=== PATIENT | male | born 1955 | race Caucasian/White ===

== ENCOUNTER 2019-07-27 11:47 | Inpatient (IN) ==
--- NOTE | 2019-07-27 13:28 | PROVIDER DOCUMENTATION ---
HPI-General Adult - General Chief Complaint: Abscess Stated Complaint: CYST Time Seen by Provider: 07/27/19 12:31 Source: patient, family Allergies/Adverse Reactions: Patient Allergies Allergy/AdvReac Type Severity Reaction Status Date / Time No Known Allergies Allergy Verified 09/11/16 06:16 Home Medications: Home Medication List Medication Instructions Recorded Confirmed Last Taken Type Cyclobenzaprine [Flexeril] 10 mg PO HS #15 tablet 09/11/16 Unknown Rx Hum Insulin NPH/Reg Insulin Hm 20 unit SQ PRN PRN 09/11/16 09/11/16 06/19/16 History [Novolin 70-30 100 Unit/ml Vial] Naproxen [Naprosyn] 500 mg PO BID #20 tablet 09/11/16 Unknown Rx - History of Present Illness -Gen Adult Nature of Presenting Problems: 64yo male presents with CC of buttock and hip pain. The patient reports that last week he had an abscess drained at urgent care, and he has not improved since. The patient has been taking abx, and has not noted drainage from the wound. The patient is a diabetic but reports that he is not compliant with his insulin. The patient denies fevers. He does report some nausea, and family memb er reports increased lethargy. Location of Pain/Injury: reports: other (buttock) Pain Radiation: reports: buttocks, flank (L), legs (lower) Severity: reports: moderate Onset/Duration: reports: 1 week ago Timing: reports: still present Modifying Factors: improves with: movement (worsens) Associated Symptoms: reports: nausea, other (hip pain). denies: fever/chills Recently seen or treated by another doctor?: Yes (Drainage at Urgent Care last week) Review of Systems - Adult - REVIEW OF SYSTEMS - ADULT Constitutional: reports: no symptoms reported. denies: fever Eyes: reports: no symptoms reported Ears, Nose, Mouth & Throat: reports: no symptoms reported. denies: throat pain Cardiovascular: reports: no symptoms reported. denies: chest pain Respiratory: reports: no symptoms reported Gastrointestinal: reports: no symptoms reported. denies: abdominal pain Genitourinary: reports: flank pain Musculoskeletal: reports: other (hip pain and buttock pain) Integumentary: reports: skin sores/ulcer, other (recent abscess) Neurological: reports: other (weakness and lethargy) Psychiatric: reports: no symptoms reported Endocrine: reports: no symptoms reported Hematologic/Lymphatic: reports: no symptoms reported Allergic/Immunologic: reports: other (recent skin infection) Past History - Adult - PAST MEDICAL HISTORY-ADULT Review of Records: reports: Old Records Reviewed Endocrine/Immune: reports: Diabetes - FAMILY HISTORY Family History: reviewed, not pertinent - SOCIAL HISTORY Smoking: greater than 1 pack/day (1ppd) Substance Use: none/never Alcohol Use Frequency: every day Physical Exam-General - PHYSICAL EXAM-ADULT Initial Vital Signs Reviewed: Yes - CONSTITUTIONAL General Appearance: no apparent distress, lethargic - EYES Eyes: negative: conjuctival exudate - HEAD, EARS, NOSE, MOUTH & THROAT HENMT: normocephalic/atraumatic - RESPIRATORY Respiratory: lungs clear, no respiratory distress, decreased breath sounds (LLL) - CARDIOVASCULAR Cardiovascular: regular rate, rhythm, no edema - GASTROINTESTINAL (ABDOMEN) Abdominal Exam: non tender, soft - MUSCULOSKELETAL Back Exam: normal inspection Extremity: non-tender (LE). negative: swelling - SKIN Integumentary: erythema, other (incision of the inner left buttocks with surrounding necrosis which tracks down buttock about 8-10cm. There is no active drainage noted.) - PSYCHIATRIC Psych/Mental Status: disheveled, other (lethargic) Progress - PLAN OF CARE/RESULTS Progress/Plan/Lab Results: Vital Signs - 8 hr 07/27/19 12:23 Temperature 98.1 F Pulse Rate 80 Respiratory Rate 20 Blood Pressure 167/94 O2 Sat by Pulse Oximetry 98 Orders Category Date Time Status Cardiac Monitoring DIRECTED Care 07/27/19 13:18 Active Finger Stick Blood Sugar (ED) DIRECTED Care 07/27/19 13:22 Active IV Insertion ORDERED Care 07/27/19 13:18 Active Notify MD of + Sepsis Screen NOW Care 07/27/19 13:16 Active Notify MD of + Sepsis Screen NOW Care 07/27/19 13:18 Active Notify Physician As Ordered Care 07/27/19 13:18 Active Sepsis [Notify MD/PA/DONAVAN for exam] NOW Care 07/27/19 13:16 Active CHEST-1 VIEW [RAD] Stat Exams 07/27/19 13:18 Ordered BLOOD CULTURE [BLDCUL] Stat Lab 07/27/19 13:18 Uncollected CBC WITH DIFF [HEME] Stat Lab 07/27/19 13:18 Uncollected CBC WITH ELECTRONIC DIFF [HEME] Stat Lab 07/27/19 13:16 Uncollected CK PROFILE [SP CHEM] Stat Lab 07/27/19 13:18 Uncollected COMPREHENSIVE METABOLIC PANEL [CHEM] Stat Lab 07/27/19 13:16 Uncollected LACTATE, PLASMA [CHEM] Q3H Lab 07/27/19 13:30 Uncollected LACTATE, PLASMA [CHEM] Q3H Lab 07/27/19 16:30 Uncollected LACTATE, PLASMA [CHEM] Q3H Lab 07/27/19 19:30 Uncollected PROTIME WITH INR [COAG] Stat Lab 07/27/19 13:18 Uncollected PTT [COAG] Stat Lab 07/27/19 13:18 Uncollected ROUTINE CULTURE [RM] Stat Lab 07/27/19 13:18 Uncollected TROPONIN T Stat Lab 07/27/19 13:18 Uncollected URINALYSIS W/POSS RFLX CULT [URINALYSIS] Stat Lab 07/27/19 13:18 Uncollected Oxygen Device Stat Oth 07/27/19 13:18 Active Result Diagrams: 07/27/19 13:30 07/27/19 13:30 - REASSESSMENT Reassessment #1 Status: other (Given noted necrosis around the previous incision site Dr. Lynne with general surgery was consulted and he will come and see the patient. Lab work pending.) Reassessment #2 Status: other (Dr Lynne has seen the patient and requested admission to the hosptialist team. Keep NPO. Will start abx. DKA labs pending, discussed this with the hospitalist team. Discussed with the hosptialist team who has accepted the patient.) Departure - Departure Date of Disposition Decision: 07/27/19 Time of Disposition Decision: 15:19 DIAGNOSIS: Cellulitis and abscess of buttock, Skin necrosis Disposition: ADMITTED INPATIENT 09 Certified Medical Emergency: Emergent Condition: Serious Referrals and Follow-Ups: None,PCP [Primary Care Provider] - - Critical Care Note This patient required my direct & personal management of CC.: No Attestation - Physician/ ZAYRA Attestation Patient care was provided by Advanced Practice Provider:: No The physician spent face to face time with patient:: Yes Advanced Practice Provider documentation review:: Supervising physician onsite and consulted in the evaluation and care of this patient. The physician did have a face to face encounter with the patient.
--- NOTE | 2019-07-27 13:35 | Diag Imaging Result Doc PS360 ---
EXAM: CHEST-1 VIEW HISTORY: Concered for sepsis TECHNIQUE: Single view COMPARISON: None. FINDINGS: The lungs are well expanded. The heart is not enlarged. The vessels are not distended. There are no infiltrates. No effusion identified. IMPRESSION: No pneumonia Electronically signed by Chinmay Henry 07/27/2019 1:33 PM
[2019-07-27 14:16] LABS: BASO# 0.02 X1000 (0.0-0.2); BASO% 0.2 % (0.0-0.8); HEMATOCRIT 40.4 % (42.0-52.0); HEMOGLOBIN 14.5 g/dL (14.0-18.0); IMM GRAN# 0.05 X1000 (0.0-0.04); IMM GRAN% 0.4 % (0.0-0.5); LYMPH# 0.79 X1000 (1.2-3.4); LYMPH% 6.2 % (20.5-51.1); MCH 32.6 PG (27-31); MCHC 35.9 g/dL (33-37); MCV 90.8 FL (81-99); MONO# 0.76 X1000 (0.11-0.59); MONO% 5.9 % (1.7-9.3); MPV 11.4 FL (7.4-10.4); NEUT% 87.3 % (42.2-75.2); PLT 107 X1000 (130-400); RBC 4.45 XMIL (4.7-6.1); RDW 12.6 % (11.5-14.5); WBC 12.82 X1000 (4.8-10.8)
[2019-07-27 14:23] LABS: INR 1.32; PROTIME 16.6 Seconds (11.0-16.0)
[2019-07-27 14:24] LABS: PTT 34.4 Seconds (22.3-41.8)
[2019-07-27 14:36] LABS: AGAP 28; ALB/GLOB RATIO 0.9; ALBUMIN 2.5 g/dL (3.5-5.0); ALKALINE PHOSPHATASE 143 U/L (32-122); BUN 34 mg/dL (8-22); CALCIUM 9.8 mg/dL (8.8-10.2); CHLORIDE 93 mmol/L (98-107); CK PROFILE 302 U/L (24-204); COSMO 300; ESTIMATED GFR > 60; GLUCOSE 432 mg/dL (70-104); GOT 35 U/L (10-34); GPT 21 U/L (10-44); POTASSIUM 3.5 mmol/L (3.5-5.1); SODIUM 137 mmol/L (136-145); TCO2 16 mmol/L (25-35); TOTAL PROTEIN 5.3 g/dL (6.3-8.3)
[2019-07-27] MEDS ORDERED: NS 1,000 ML IV ONE (14:55)
[2019-07-27] MEDS ORDERED: VANCOMYCIN IV PER PHARMACY MISC SCH (15:00)
[2019-07-27] MEDS ORDERED: VANCOMYCIN 1 GM/NS 1 GM/250 ML IVPB IV ONE (15:04)
[2019-07-27 15:05] LABS: CK INDEX 1.9 (0.0-2.5)
[2019-07-27] MEDS ORDERED: HUMALOG SUBQ SCH (16:00)
[2019-07-27] MEDS: ZOSYN 3.375 GM in NS 50 ML IV SCH (16:37)
[2019-07-27] MEDS ORDERED: NS 2,000 ML IV ONE (17:00)
[2019-07-27] MEDS: MORPHINE IV PRN (17:05)
[2019-07-27] MEDS: ZOFRAN IV PRN ×2 (17:05→22:21)
[2019-07-27] MEDS: NS 1,000 ML IV SCH ×3 (17:06→20:00)
[2019-07-27] MEDS: VANCOMYCIN 1 GM/NS 1 GM/250 ML IVPB IV SCH ×2 (17:26→21:22)
[2019-07-27 17:31] LABS: URINE SOURCE CLEAN CATCH
--- NOTE | 2019-07-27 17:32 | GENERAL SURGERY CONSULTATION ---
DATE: 07/27/2019 HISTORY OF PRESENT ILLNESS: It is 5 p.m. in the afternoon. Mr. Ely is a 64-year-old who presents with a "cyst" of his buttock. Apparently, it has been lanced at the med/surg center but it has not improved and because of the discomfort he presents to the emergency department. He has been taking p.o. antibiotic; I do not know the name of it. He has an insulin-dependent diabetic. He denies any fever or chills. PAST MEDICAL HISTORY: Pertinent for the insulin-dependent diabetes. FAMILY HISTORY: Noncontributory. SOCIAL HISTORY: Smokes a pack per day. Denies alcohol or illicit drug use. REVIEW OF SYSTEMS: Noted for some weakness. The other subsystems are negative; all 10 subsystems. PHYSICAL EXAMINATION: Vital Signs: He is afebrile. Heart rate 80. Blood pressure 167/94. Bilateral breath sounds. Heart: Regular rate and rhythm. Abdomen: Soft. He does appear to have some necrotic area of his buttock area. No purulent drainage is noted. ASSESSMENT: Perianal necrosis. PLAN: The plan will be to control the sugar and bring it down tonight. I would start him on IV antibiotics. We will take him to the operating room tomorrow for debridement of his perianal area. cc: Dimitri Lynne MD
[2019-07-27 17:36] LABS: BILIRUBIN URINE NEGATIVE (NEGATIVE); BLOOD URINE SMALL (NEGATIVE); COLOR YELLOW; GLUCOSE URINE >1000 mg/dL (NEGATIVE); KETONE URINE >150 mg/dL (NEGATIVE); LEUKOCYTES URINE NEGATIVE (NEGATIVE); NITRITE URINE NEGATIVE (NEGATIVE); PROTEIN URINE 30 mg/dL (NEGATIVE); SP GRAVITY URINE 1.026; TURBIDITY URINE HAZY (CLEAR); UROBILINOGEN URINE NORMAL (NORMAL)
[2019-07-27 17:47] LABS: UR EPITHELIAL CELLS <10 /HPF (<10); URINE BACTERIA NEGATIVE /HPF; URINE RBC <10 /HPF (<10); URINE WBC <10 /HPF (<10)
[2019-07-27 17:55] LABS: URINE CASTS NONE SEEN; URINE CRYSTALS NONE SEEN; URINE SMALL ROUND CELLS NONE SEEN; URINE YEAST NONE SEEN
[2019-07-27 18:26] LABS: BE -10.7 mmoll (-2.0-2.0); BLOOD TYPE VENOUS; HCO3-(ACT) 16.5 mmoll (22-27); PCO2(98.6) 24 mmHg (40-60); PO2(98.6) 141 mmHg (30-55); SAMPLE BLOOD; SAO2 99.3 % (40.0-85.0); pH(98.6) 7.34 (7.32-7.43)
[2019-07-27] MEDS ORDERED: HUMULIN R IV ONE (19:12)
[2019-07-27] MEDS ORDERED: MAGNESIUM SULFATE IV PRN (19:12)
[2019-07-27] MEDS ORDERED: D5 NS 1,000 ML IV PRN (19:12)
[2019-07-27] MEDS ORDERED: S W I IV PRN (19:12)
[2019-07-27] MEDS ORDERED: D50W SYRINGE IV PRN (19:12)
[2019-07-27] MEDS ORDERED: SODIUM PHOSPHATE 30 MMOL in D5W 250 ML IV PRN (19:12)
[2019-07-27] MEDS ORDERED: POTASSIUM CHLORIDE 20 MEQ/SWI 20 MEQ/100 ML IVPB IV PRN (19:12)
[2019-07-27] MEDS ORDERED: POTASSIUM CHLORIDE 20% LIQUID PO PRN (19:12)
[2019-07-27] MEDS ORDERED: HUMULIN R 100 UNIT in NS 100 ML IV SCH (20:00)
--- NOTE | 2019-07-27 20:20 | HISTORY AND PHYSICAL ---
CHIEF COMPLAINT: Cyst of his buttock. HISTORY OF PRESENT ILLNESS: This is a 64-year-old gentleman with a history of diabetes mellitus and chronic pain. He presents to the emergency room complaining of having an open wound on his buttock that was packed at a med/surg clinic on Saturday. He was supposed to return to the clinic yesterday, the , to have this evaluated, although he stated that he could not walk and did not feel like going. His stated on checking it today, she found that it was black and blue tissue; therefore, she brought him to the emergency room for evaluation. The patient was prescribed Bactrim DS b.i.d. as well as Flagyl 500 mg b.i.d. on the . The family does state that he has been taking this as prescribed. PAST MEDICAL HISTORY: Insulin-dependent diabetes mellitus. PAST SURGICAL HISTORY: Rotator cuff repair. SOCIAL HISTORY: He drinks 3 shots a day of whiskey. He smokes a pack a day. He denies any illicit drug use. ALLERGIES: No known drug allergies. HOME MEDICATIONS: A list will be obtained by the nursing staff and once verified will be reviewed and restart as appropriate. REVIEW OF SYSTEMS: Discussed with the patient with pertinent positives stated in the HPI. He denied any syncope or dizziness, any chest pain or palpitations, any shortness of breath, cough, any fevers or chills, any nausea, vomiting, diarrhea, constipation, black or bloody vomitus or stools, any hematuria, dysuria, frequency or urgency. PHYSICAL EXAMINATION: GENERAL: This is a 64-year-old gentleman who is lying on the stretcher in the emergency room in no distress. VITAL SIGNS: Blood pressure is 160/80 with a heart rate of 90, respirations are 20, temperature is 98.3 degrees with room air saturations 96 to 100. HEENT: Head is normocephalic, atraumatic. Mucous membranes are dry. NECK: Supple with trachea midline. CARDIOVASCULAR: Regular rate and rhythm. S1 and S2 appreciated. He has no lower extremity edema. Peripheral pulses are palpable x4 extremities. PULMONARY: Breath sounds are clear. No increased work of breathing noted. Chest rise falls symmetric with respiration. GASTROINTESTINAL: Abdomen is soft, nontender, nondistended with bowel sounds in all 4 quadrants. NEUROLOGIC: He is lethargic, but he is oriented. SKIN: Warm and dry. He does have an incision noted to the inner left buttocks with necrosis surrounding. This does track down to his scrotal area with no active drainage. It is tender to palpation. LABS: WBC is 12.8 with hemoglobin 14.5, hematocrit 40.4, and platelets of 107,000. INR is 1.32. Sodium 137, potassium 3.5, BUN 34, creatinine 1 with a glucose of 432. Troponin is negative. Urinalysis reveals greater than 1000 glucose with greater than 150 ketones, small blood with less than 10 microscopic white blood cells, red blood cells and epithelial cells. Acetone is moderate. Blood cultures are pending. ASSESSMENT AND PLAN: 1. Perianal necrosis. The patient will be NPO after midnight for surgery in the morning. Dr. Lynne has been consulted and examined the patient. Vancomycin will be ordered and dosed per pharmacy as well as Zosyn. Any further antibiotics will be culture driven. 2. Diabetic ketoacidosis. He will be moved to PVC unit, started on diabetic ketoacidosis protocol. 3. Leukocytosis. Referred to #1. We will repeat a CBC with differential in the morning and magnesium phosphorus and BMP will be per diabetic ketoacidosis protocol. The patient was examined and plan was discussed with Dr. Shaw. Further treatments pending hospital course. Dictated by DONAVAN Caballero for Newton Shaw MD cc: DONAVAN Caballero Patient with area of fairly extensive ulceration and necrossi from the gregoria-anal area extending up to the posterior scrotum. 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 surgery consulted and will likely take him to the OR in the morning. empiric antibiotics and fluids until then. borderline for DKA but will treat aggressively so that it's not a barrier to him going to the OR in the morning. MTDD
[2019-07-27] MEDS ORDERED: VANCOMYCIN 2,000 MG in NS 500 ML IV ONE (21:00)
[2019-07-27 21:20] LABS: AGAP 21; BUN 33 mg/dL (8-22); CALCIUM 9.7 mg/dL (8.8-10.2); CHLORIDE 102 mmol/L (98-107); COSMO 300; ESTIMATED GFR > 60; GLUCOSE 299 mg/dL (70-104); MAGNESIUM 1.9 mg/dL (1.5-2.7); PHOSPHORUS 2.7 mg/dL (2.7-4.5); POTASSIUM 3.1 mmol/L (3.5-5.1); SODIUM 141 mmol/L (136-145); TCO2 18 mmol/L (25-35)
[2019-07-27] MEDS ORDERED: POTASSIUM PHOSPHATE IV ONE (21:58)
[2019-07-27] MEDS ORDERED: NS IV ONE (21:58)
[2019-07-27] MEDS: POTASSIUM CHLORIDE 20 MEQ/SWI 20 MEQ/100 ML IVPB IV SCH (22:51)
[2019-07-27 23:44] LABS: AGAP 18; BUN 34 mg/dL (8-22); CALCIUM 9.5 mg/dL (8.8-10.2); CHLORIDE 105 mmol/L (98-107); COSMO 300; ESTIMATED GFR > 60; GLUCOSE 263 mg/dL (70-104); MAGNESIUM 1.8 mg/dL (1.5-2.7); PHOSPHORUS 2.2 mg/dL (2.7-4.5); POTASSIUM 3.2 mmol/L (3.5-5.1); SODIUM 142 mmol/L (136-145); TCO2 19 mmol/L (25-35)
[2019-07-28] MEDS: MORPHINE IV PRN ×5 (00:31→10:20)
[2019-07-28] MEDS: ZOSYN 3.375 GM in NS 50 ML IV SCH ×5 (00:55→16:59)
[2019-07-28] MEDS ORDERED: CALMOSEPTINE OINTMENT TOP PRN (01:12)
[2019-07-28] MEDS: POTASSIUM CHLORIDE 20 MEQ/SWI 20 MEQ/100 ML IVPB IV SCH (01:29)
[2019-07-28] MEDS: ZOFRAN IV PRN (03:03)
[2019-07-28] MEDS: NS 1,000 ML IV SCH ×4 (03:48→19:29)
[2019-07-28 05:13] LABS: BASO# 0.03 X1000 (0.0-0.2); BASO% 0.2 % (0.0-0.8); EOS# 0.02 X1000 (0.0-0.7); EOS% 0.2 % (0.0-10.0); HEMATOCRIT 35.3 % (42.0-52.0); HEMOGLOBIN 12.6 g/dL (14.0-18.0); IMM GRAN# 0.08 X1000 (0.0-0.04); IMM GRAN% 0.6 % (0.0-0.5); LYMPH# 1.05 X1000 (1.2-3.4); MCH 32.8 PG (27-31); MCHC 35.7 g/dL (33-37); MCV 91.9 FL (81-99); MONO% 11.5 % (1.7-9.3); MPV 11.3 FL (7.4-10.4); NEUT# 10.38 X1000 (1.4-6.5); NEUT% 79.5 % (42.2-75.2); PLT 107 X1000 (130-400); RBC 3.84 XMIL (4.7-6.1); RDW 12.8 % (11.5-14.5); WBC 13.06 X1000 (4.8-10.8)
[2019-07-28 05:26] LABS: HEMOGLOBIN A1C 11.4 % (4.8-6.0)
[2019-07-28 05:50] LABS: AGAP 17; BUN 34 mg/dL (8-22); CALCIUM 9.1 mg/dL (8.8-10.2); CHLORIDE 111 mmol/L (98-107); COSMO 306; CREATININE 0.8 mg/dL (0.7-1.2); ESTIMATED GFR > 60; GLUCOSE 198 mg/dL (70-104); MAGNESIUM 1.7 mg/dL (1.5-2.7); POTASSIUM 3.5 mmol/L (3.5-5.1); SODIUM 147 mmol/L (136-145); TCO2 19 mmol/L (25-35)
[2019-07-28] MEDS ORDERED: POTASSIUM CHLORIDE 10% LIQUID PO PRN (07:07)
[2019-07-28 08:17] LABS: AGAP 14; BUN 34 mg/dL (8-22); CALCIUM 9.1 mg/dL (8.8-10.2); CHLORIDE 112 mmol/L (98-107); COSMO 305; CREATININE 0.8 mg/dL (0.7-1.2); ESTIMATED GFR > 60; GLUCOSE 182 mg/dL (70-104); MAGNESIUM 1.8 mg/dL (1.5-2.7); POTASSIUM 3.1 mmol/L (3.5-5.1); SODIUM 147 mmol/L (136-145); TCO2 21 mmol/L (25-35)
[2019-07-28] MEDS ORDERED: POTASSIUM PHOSPHATE 40 MEQ in NS 250 ML IV ONE (08:53)
[2019-07-28 09:31] LABS: ALLEN TEST YES; BE -0.5 mmoll (-3.0-3.0); BLOOD TYPE ARTERIAL; HCO3-(ACT) 24.5 mmoll (20.0-26.0); METHB 1.2 % (0.0-1.5); PCO2(98.6) 31 mmHg (35-45); PO2(98.6) 73 mmHg (60-100); SAMPLE BLOOD; THB 10.4 g/dL (11.5-17.4); pH(98.6) 7.47 (7.35-7.45)
[2019-07-28 09:32] LABS: MODALITY ROOM AIR
[2019-07-28] MEDS: LANTUS INSULIN SUBQ SCH (09:50)
[2019-07-28] MEDS ORDERED: DIPRIVAN 1% ONE (10:12)
[2019-07-28] MEDS ORDERED: XYLOCAINE-MPF 2% ONE (10:12)
[2019-07-28] MEDS ORDERED: ROBINUL ONE ×2 (10:12→10:31)
[2019-07-28] MEDS ORDERED: NEOSTIGMINE ONE (10:31)
[2019-07-28] MEDS ORDERED: FENTANYL ONE (11:13)
[2019-07-28 11:39] LABS: AGAP 14; BUN 33 mg/dL (8-22); CHLORIDE 113 mmol/L (98-107); COSMO 306; CREATININE 0.8 mg/dL (0.7-1.2); ESTIMATED GFR > 60; GLUCOSE 178 mg/dL (70-104); MAGNESIUM 1.7 mg/dL (1.5-2.7); POTASSIUM 3.3 mmol/L (3.5-5.1); SODIUM 148 mmol/L (136-145); TCO2 21 mmol/L (25-35)
[2019-07-28] MEDS ORDERED: ZOFRAN ONE (11:45)
[2019-07-28] MEDS ORDERED: TORADOL ONE (11:45)
[2019-07-28] MEDS ORDERED: OFIRMEV 1000 MG/ISOTONIC SOLN 1,000 MG/100 ML BOTTLE ONE (11:56)
[2019-07-28] MEDS ORDERED: LR 1,000 ML ONE (12:46)
[2019-07-28] MEDS: DILAUDID ONE ×5 (12:46→16:39)
[2019-07-28 15:09] LABS: AGAP 17; BUN 31 mg/dL (8-22); CALCIUM 8.5 mg/dL (8.8-10.2); CHLORIDE 111 mmol/L (98-107); COSMO 309; CREATININE 0.8 mg/dL (0.7-1.2); ESTIMATED GFR > 60; GLUCOSE 249 mg/dL (70-104); MAGNESIUM 1.5 mg/dL (1.5-2.7); POTASSIUM 3.3 mmol/L (3.5-5.1); SODIUM 148 mmol/L (136-145); TCO2 20 mmol/L (25-35)
--- NOTE | 2019-07-28 15:50 | PROGRESS NOTE ---
DATE: 07/28/2019 INTERVAL HISTORY: Patient complaining of not entirely controlled pain on current regimen. States gives him really briefly but it is fairly short-lived. Afebrile overnight. Remains on insulin drip this morning but transitioning shortly n.p.o. for likely surgery later today. DKA appears much improved so no medical peers to surgery seen. No other new complaints. REVIEW OF SYSTEMS: Twelve point review of systems negative except as per interval history. LABS: WBC 13.0, hemoglobin 12.6, hematocrit 35.3, platelets 107,000. ABG with pH 7.47, pCO2 31, PO2 73 on room air. Sodium 148, potassium 3.3, bicarb 21, BUN 33, creatinine 0.8, glucose 123 to 181. VITAL SIGNS: T-max 98.1 degrees, pulse 80, respirations 16, blood pressure 133/74, O2 saturation 100% on room air. PHYSICAL EXAMINATION: General: No acute distress. Vital signs: As above. HEENT: Normocephalic, atraumatic. Moist mucous membranes. No JVD. No cervical adenopathy. Cardiovascular: Regular rate and rhythm. No murmurs noted. Pulmonary: Clear to auscultation bilaterally. No wheezing, rales, or rhonchi. Abdomen: Soft, nontender, nondistended. Bowel sounds positive. Extremities: Peripheral pulses intact. No clubbing or cyanosis. Neurologic: Cranial nerves grossly intact. No focal deficits identified. Psychiatric: Normal mood and affect. Awake, alert, oriented x3. Skin: Area of skin necrosis on buttock around the anus and extending into the inferior scrotum, approximately stable. ASSESSMENT AND PLAN: 1. 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 On antibiotics with vancomycin and Zosyn. The plan is to go to surgery later today. Further treatment depending on how surgery goes and his course. 2. Diabetes mellitus, likely diabetic ketoacidosis. Patient with labs concerning for DKA on admission, although poor p.o. intake conservation may be contributing somewhat. Placed on insulin drip overnight and elevated anion gap has resolved. We will plan on transitioning over to subcutaneous insulin and sliding scale and monitor closely. Continue hydration. 3. Hypokalemia and hypophosphatemia. We will replete those and monitor. 4. Diarrhea. Likely related to above issues but C. difficile pending to rule that out.
--- NOTE | 2019-07-28 16:20 | OPERATIVE NOTE ---
PROCEDURE DATE: 07/28/2019 NAME OF THE PROCEDURE: Excisional debridement of skin and soft tissue of the perianal area to the left of the midline measuring about 12 x 6 x 20 cm. PREOPERATIVE DIAGNOSIS: Diabetes with Cristina's gangrene. POSTOPERATIVE DIAGNOSIS: Diabetes with Cristina's gangrene. DESCRIPTION OF PROCEDURE: Satisfactory general anesthesia was achieved. The patient is placed in the candy-cane stirrups. The perianal area was prepped and draped in a sterile fashion. There was an area of necrosis involving the skin from the area about 4 o'clock to the left of the anus all the way up to the peroneal body. We began anteriorly, incised at the edge of the black necrotic skin and then dissected deep into the soft tissue. As we dissected from anterior to posterior, we went deeper into the soft tissue to the left of the rectum all the way up to where we palpated the pelvis. We debrided all the necrotic tissue. We did culture the infection. We dissected as deep as we could and removed the necrotic tissue. After completing that, we achieved satisfactory hemostasis with electrocautery. We then copiously irrigated and packed with Betadine- impregnated Kaushal, covered it with ABD and some net panties. He tolerated it well and was sent to the recovery room in satisfactory condition. cc: Dimitri Lynne MD
[2019-07-28] MEDS: HUMALOG SUBQ SCH ×2 (18:11→20:36)
[2019-07-28] MEDS: VANCOMYCIN 1,750 MG in NS 250 ML IV SCH (19:29)
[2019-07-29] MEDS: ZOSYN 3.375 GM in NS 50 ML IV SCH ×5 (00:31→23:19)
[2019-07-29] MEDS: NS 1,000 ML IV SCH ×3 (01:59→11:45)
[2019-07-29] MEDS: MORPHINE IV PRN ×6 (04:49→23:19)
[2019-07-29 06:54] LABS: BASO# 0.01 X1000 (0.0-0.2); BASO% 0.1 % (0.0-0.8); EOS# 0.04 X1000 (0.0-0.7); EOS% 0.3 % (0.0-10.0); HEMATOCRIT 32.5 % (42.0-52.0); HEMOGLOBIN 11.4 g/dL (14.0-18.0); IMM GRAN# 0.06 X1000 (0.0-0.04); IMM GRAN% 0.4 % (0.0-0.5); LYMPH# 1.09 X1000 (1.2-3.4); LYMPH% 7.7 % (20.5-51.1); MCH 32.4 PG (27-31); MCHC 35.1 g/dL (33-37); MCV 92.3 FL (81-99); MONO# 1.36 X1000 (0.11-0.59); MONO% 9.7 % (1.7-9.3); NEUT# 11.52 X1000 (1.4-6.5); NEUT% 81.8 % (42.2-75.2); PLT 94 X1000 (130-400); RBC 3.52 XMIL (4.7-6.1); RDW 13.5 % (11.5-14.5); WBC 14.08 X1000 (4.8-10.8)
[2019-07-29 07:10] LABS: AGAP 14; BUN 26 mg/dL (8-22); CALCIUM 8.2 mg/dL (8.8-10.2); CHLORIDE 112 mmol/L (98-107); COSMO 303; CREATININE 0.7 mg/dL (0.7-1.2); ESTIMATED GFR > 60; GLUCOSE 204 mg/dL (70-104); POTASSIUM 3.2 mmol/L (3.5-5.1); SODIUM 147 mmol/L (136-145); TCO2 21 mmol/L (25-35)
[2019-07-29] MEDS: HUMALOG SUBQ SCH ×4 (07:28→21:00)
[2019-07-29 07:38] LABS: MAGNESIUM 1.6 mg/dL (1.5-2.7); PHOSPHORUS 2.7 mg/dL (2.7-4.5)
[2019-07-29] MEDS ORDERED: POTASSIUM CHLORIDE 60 MEQ in NS 500 ML IV ONE (08:00)
[2019-07-29] MEDS: LANTUS INSULIN SUBQ SCH (08:19)
--- NOTE | 2019-07-29 10:24 | GENERAL SURGERY PROGRESS NOTE ---
DATE: 07/29/2019 He is afebrile. Heart rate 83, blood pressure 165/88. His packing is removed today. We will simply cover his wound with ABD bandage. His white count is 14,000. We will continue to monitor the progress of the wound daily and does not need repacking. cc: Dimitri Lynne MD
[2019-07-29] MEDS: ZOFRAN IV PRN (11:46)
--- NOTE | 2019-07-29 12:39 | PROGRESS NOTE ---
DATE: 07/29/2019 INTERVAL HISTORY: The patient is status post fairly extensive debridement by Dr. Lynne yesterday. Pain reasonably well controlled. No new complaints. No acute events overnight. REVIEW OF SYSTEMS: Twelve point review of systems negative, except as per interval history. LABS: WBC 14.8, hemoglobin 11.4, hematocrit 32.5, platelets 94. Sodium 147, potassium 3.2. BUN 26, creatinine 0.7 glucose 178 to 217. VITALS: T-max 98.7 degrees, pulse 82, respirations 13, blood pressure 140/79, O2 saturation 97% on room air. PHYSICAL EXAMINATION: General: No acute distress. Vitals: As above. HEENT: Normocephalic, atraumatic. Moist mucous membranes. Neck: No cervical adenopathy. Cardiovascular: Regular rate and rhythm. No murmurs noted. Pulmonary: Clear to auscultation bilaterally. No wheezing, rales, or rhonchi. Abdomen: Soft, nontender, nondistended. Bowel sounds positive. Extremities: Peripheral pulses intact. No clubbing or cyanosis. Neurologic: Cranial nerves grossly intact. Mild global weakness, but no focal deficits identified. Psychiatric: Normal mood and affect. Asleep, but easily arousable. Oriented x3. Cooperative. Skin: Previously noted area of necrosis on buttocks and perineum heavily bandaged. ASSESSMENT AND PLAN: 1. 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 Status post surgery 07/28. Initial culture from swab in the emergency room growing gram- negative carissa. Cultures from the time of surgery pending. Blood cultures no growth thus far. Continue empiric antibiotics and monitor. Further treatment based on Surgery's assessment of how his wound does. 2. Diabetes mellitus, diabetic ketoacidosis. Patient was initially treated with insulin drip and aggressive fluids. Diabetic ketoacidosis now resolved since yesterday. Transitioned to subcutaneous insulin. Doing okay on that. Continue to monitor. 3. Hypokalemia and hypophosphatemia. Potassium low again today. We will replete further. Phosphorus improved. Magnesium okay. 4. Diarrhea. Had diarrhea on admission and Clostridium difficile was ordered, although it was considered unlikely. He has not really had any further diarrhea to actually test for Clostridium difficile. If he has no further diarrhea over the next day, can likely cancel Clostridium difficile test. [facility]
[2019-07-29] MEDS ORDERED: COMPAZINE IV PRN (12:56)
--- NOTE | 2019-07-29 14:04 | EKG Report ---
Test Performed on : 07/29/2019 1:44:45 PM Test Reason : check QTc Blood Pressure : / mmHG Vent. Rate : 082 BPM Atrial Rate : 082 BPM P-R Int : 138 ms QRS Dur : 102 ms QT Int : 398 ms P-R-T Axes : 060 039 076 degrees QTc Int : 464 ms Sinus rhythm. with premature atrial complexes. Cannot rule out Inferior infarct , age undetermined Abnormal ECG When compared with ECG of 11-SEP-2016 06:58, premature atrial complexes. are now present QRS duration has increased Minimal criteria for Inferior infarct are now present T wave amplitude has decreased in Anterior leads QT has lengthened Confirmed by Braden BOB, Bob ([id number]) on 07/30/2019 10:36:21 AM
[2019-07-29] MEDS ORDERED: SKELAXIN PO PRN (16:24)
[2019-07-29] MEDS ORDERED: DILAUDID IV ONE (19:00)
[2019-07-29] MEDS: VANCOMYCIN 1,750 MG in NS 250 ML IV SCH (20:16)
[2019-07-30] MEDS: MORPHINE IV PRN ×5 (01:55→18:19)
[2019-07-30] MEDS ORDERED: DILAUDID IV ONE (05:37)
[2019-07-30] MEDS: ZOSYN 3.375 GM in NS 50 ML IV SCH ×3 (06:03→18:26)
[2019-07-30] MEDS: NS 1,000 ML IV SCH ×2 (06:03→22:25)
[2019-07-30] MEDS: HUMALOG SUBQ SCH ×4 (06:40→22:29)
[2019-07-30 07:04] LABS: BASO# 0.02 X1000 (0.0-0.2); BASO% 0.1 % (0.0-0.8); EOS# 0.05 X1000 (0.0-0.7); EOS% 0.3 % (0.0-10.0); HEMATOCRIT 34.3 % (42.0-52.0); HEMOGLOBIN 11.7 g/dL (14.0-18.0); IMM GRAN# 0.09 X1000 (0.0-0.04); IMM GRAN% 0.5 % (0.0-0.5); LYMPH# 1.27 X1000 (1.2-3.4); LYMPH% 7.6 % (20.5-51.1); MCH 32.1 PG (27-31); MCHC 34.1 g/dL (33-37); MCV 94.2 FL (81-99); MONO# 1.55 X1000 (0.11-0.59); MONO% 9.2 % (1.7-9.3); MPV 11.8 FL (7.4-10.4); NEUT# 13.82 X1000 (1.4-6.5); NEUT% 82.3 % (42.2-75.2); PLT 105 X1000 (130-400); RBC 3.64 XMIL (4.7-6.1); RDW 13.6 % (11.5-14.5)
[2019-07-30 07:21] LABS: MAGNESIUM 1.5 mg/dL (1.5-2.7)
[2019-07-30 07:30] LABS: AGAP 13; BUN 14 mg/dL (8-22); CALCIUM 7.7 mg/dL (8.8-10.2); CHLORIDE 105 mmol/L (98-107); COSMO 287; CREATININE 0.6 mg/dL (0.7-1.2); ESTIMATED GFR > 60; GLUCOSE 200 mg/dL (70-104); POTASSIUM 3.2 mmol/L (3.5-5.1); SODIUM 141 mmol/L (136-145); TCO2 23 mmol/L (25-35)
[2019-07-30 07:47] LABS: LYMPHS 9 % (21-51); MONO 7 % (1-9); SEGS 84 % (42-75)
[2019-07-30] MEDS: LANTUS INSULIN SUBQ SCH (08:17)
[2019-07-30] MEDS ORDERED: ZOSYN ONE (13:09)
[2019-07-30] MEDS: KLOR-CON PO SCH ×2 (18:16→22:26)
[2019-07-30] MEDS ORDERED: MORPHINE IV PRN (19:18)
--- NOTE | 2019-07-30 19:37 | PROGRESS NOTE ---
DATE: 07/30/2019 INTERVAL HISTORY: No acute events overnight. SUBJECTIVE: Mr. Ely is in significant pain in the groin region. He remains on the right lateral position and pretty much sleeps throughout the day. He denies any chest pain or shortness of breath. OBJECTIVE: Vitals: Temperature of 98.4 degrees, pulse 91, respiratory rate 18, blood pressure 150/90, saturating 98% on room air. General: He is not in acute distress. HEENT: Oral cavity is moist. Lungs: Air entry bilaterally equal. No wheeze, rhonchi or crackles. Cardiovascular: S1, S2 normal. No murmur or gallop. Abdomen: Soft, nontender. Extremity: No lower extremity edema. Neurologic: He is alert and oriented x3. He does have about 12 x 20 cm wound in the perianal area, which was recently debrided. Currently appears there is no pus. LABORATORY DATA: He continues to have leukocytosis, normocytic anemia, mild thrombocytopenia. He has hypokalemia and hypomagnesemia currently being repleted. His blood glucose has been within acceptable range. He did have lactic acidosis on presentation. MICROBIOLOGY: No positive data except the culture of the drainage, which is growing Klebsiella pneumoniae which is sensitive to cefazolin. RADIOLOGIC DATA: No new imaging. ASSESSMENT AND PLAN: 1. 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 I will change intravenous antibiotics to intravenous cefazolin. He is status post excisional debridement of skin and soft tissue left of the midline of about 12 x 20 cm on 07/28/2019. General surgical team on board. 2. Insulin-dependent diabetes mellitus and diabetic ketoacidosis on presentation. Currently blood glucoses are well controlled. Continue decreased intravenous fluids. Continue subcutaneous insulin, and I will adjust the dose according to his oral intake and blood glucose. 3. Hypokalemia and hypomagnesemia. Currently repleted. 4. Wound pain. His pain is not adequately controlled. I will start him on oral oxycodone on top of intravenous morphine that he has already been on. Based on the MAR review, he has been taking intravenous morphine almost every 4 hours. I will also start him on scheduled dose of acetaminophen and DVT prophylaxis. DISPOSITION: Continue to monitor patient inside the hospital. Plan of care discussed with him. All of his questions have been answered. cc: Veto Jernigan MD
--- NOTE | 2019-07-30 19:50 | GENERAL SURGERY PROGRESS NOTE ---
DATE: 07/30/2019 White count today is 16,800. His wound is inspected. It still looks fairly angry and soupy. I will start packing with Vashe impregnated gauze to help stimulate some granulation. He may come to reexcision redebridement. cc: Dimitri Lynne MD
[2019-07-30] MEDS: KEFZOL 1 GM/D5W 1 GM/50 ML IVPB IV SCH (22:26)
[2019-07-30] MEDS: OXY IR PO SCH (22:27)
[2019-07-30] MEDS: TYLENOL PO SCH (22:38)
[2019-07-30] MEDS: MAGNESIUM SULFATE 2 GM/S.W.I. 2 GM/50 ML IVPB IV SCH (23:23)
[2019-07-31] MEDS: MAGNESIUM SULFATE 2 GM/S.W.I. 2 GM/50 ML IVPB IV SCH (03:14)
[2019-07-31] MEDS: OXY IR PO SCH ×3 (05:11→21:25)
[2019-07-31] MEDS: TYLENOL PO SCH (05:11)
[2019-07-31] MEDS: KEFZOL 1 GM/D5W 1 GM/50 ML IVPB IV SCH ×3 (05:12→21:25)
[2019-07-31 07:29] LABS: BASO# 0.02 X1000 (0.0-0.2); BASO% 0.1 % (0.0-0.8); EOS# 0.12 X1000 (0.0-0.7); EOS% 0.9 % (0.0-10.0); HEMATOCRIT 32.7 % (42.0-52.0); HEMOGLOBIN 11.2 g/dL (14.0-18.0); IMM GRAN# 0.06 X1000 (0.0-0.04); IMM GRAN% 0.4 % (0.0-0.5); LYMPH# 1.45 X1000 (1.2-3.4); LYMPH% 10.6 % (20.5-51.1); MCH 32.2 PG (27-31); MCHC 34.3 g/dL (33-37); MONO# 1.05 X1000 (0.11-0.59); MONO% 7.6 % (1.7-9.3); MPV 11.2 FL (7.4-10.4); NEUT# 11.04 X1000 (1.4-6.5); NEUT% 80.4 % (42.2-75.2); PLT 127 X1000 (130-400); RBC 3.48 XMIL (4.7-6.1); RDW 13.4 % (11.5-14.5); WBC 13.74 X1000 (4.8-10.8)
[2019-07-31 07:32] LABS: AGAP 12; BUN 9 mg/dL (8-22); CALCIUM 7.3 mg/dL (8.8-10.2); CHLORIDE 104 mmol/L (98-107); COSMO 274; CREATININE 0.5 mg/dL (0.7-1.2); ESTIMATED GFR > 60; GLUCOSE 129 mg/dL (70-104); POTASSIUM 3.2 mmol/L (3.5-5.1); SODIUM 137 mmol/L (136-145); TCO2 21 mmol/L (25-35)
[2019-07-31] MEDS: HUMALOG SUBQ SCH ×4 (07:42→21:26)
[2019-07-31] MEDS: LANTUS INSULIN SUBQ SCH (09:11)
[2019-07-31] MEDS ORDERED: VANCOMYCIN IV PER PHARMACY MISC SCH (12:15)
--- NOTE | 2019-07-31 13:58 | PROGRESS NOTE ---
DATE: 07/31/2019 SUBJECTIVE: The patient reports still moderate pain in the groin area. He reports no chest pain. No shortness of breath. OBJECTIVE: Vital Signs: Temperature 99 degrees, heart rate 86, respiratory rate 20, blood pressure 131/51, and O2 saturation 96% on room air. General: This is a 64-year-old male lying in bed in no acute distress. Cardiovascular: S1 and S2 heard. No murmurs, gallops, or rubs. Regular rate and rhythm. Respiratory: Clear bilaterally to auscultation. No work of breathing or using accessory muscles. Abdomen: Soft. Nontender to palpation. Bowel sounds present. No organomegaly. No clubbing, cyanosis or edema. Peripheral pulses present in both legs. Neurological: Patient is alert and oriented x3. Moves all 4 extremities. Genitourinary: The patient has 12 x 20 cm wound in the perineal area covered with a dressing. LABORATORY DATA: White cell count 13.74, hemoglobin 11.2, hematocrit 32.7, and platelets 127,000. Potassium 3.2. Normal creatinine and glucose 129. MICROBIOLOGY: Drainage of the culture showed Klebsiella pneumonia, and also culture from the anal area growth enterococcus. . ASSESSMENT AND PLAN: 1. 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 As we mentioned before, it is growing Klebsiella pneumonia. Patient is on IV cefazolin. Because of the finding of the Enterococcus, I will add vancomycin to his current treatment. Note from General Surgery mentioned that he may need re-excision debridement. We will follow recommendations from them. 2. Diabetes mellitus type 2. Insulin dependent. We will continue with Lantus and sliding scale insulin before meals, and also at bedtime. Hemoglobin A1c at presentation was elevated at 1.4. 3. Hypokalemia. Potassium 3.2. We are going to replenish it today. 4. Hypomagnesemia that is completely resolved. 5. Wound pain. We will make some changes to his current medications because patient continues to report pain. 6. Disposition: We will continue to monitor this patient in the hospital. We will follow recommendations from General Surgery. cc: MD JOSIE Hu
[2019-07-31] MEDS ORDERED: VANCOMYCIN 1,750 MG in NS 500 ML IV ONE (14:00)
[2019-07-31] MEDS: NS 1,000 ML IV SCH ×2 (14:08→21:23)
[2019-07-31] MEDS: MORPHINE IV PRN ×2 (14:19→17:14)
[2019-07-31] MEDS: OFIRMEV 1000 MG/ISOTONIC SOLN 1,000 MG/100 ML BOTTLE IV SCH ×2 (15:10→21:25)
[2019-07-31] MEDS: TORADOL IV SCH ×2 (15:10→21:25)
--- NOTE | 2019-07-31 18:15 | GENERAL SURGERY PROGRESS NOTE ---
DATE: 07/31/2019 Mr. Ely's wound continues to look troublesome; however, it is improved compared to how it originally looked. The white count is now down to 13,000. Vashe gauze appears to be helping clean it. I will continue with IV antibiotic therapy. He may come to reexcision, but it is too early to determine that as of yet. Dr. Azevedo is to cover the weekend. cc: Dimitri Lynne MD
[2019-08-01] MEDS: OFIRMEV 1000 MG/ISOTONIC SOLN 1,000 MG/100 ML BOTTLE IV SCH ×4 (00:32→21:10)
[2019-08-01] MEDS: TORADOL IV SCH ×4 (00:32→21:10)
[2019-08-01] MEDS ORDERED: VANCOMYCIN 1,250 MG in NS 250 ML IV ONE (03:00)
--- NOTE | 2019-08-01 06:21 | GENERAL SURGERY PROGRESS NOTE ---
DATE: 08/01/2019 SUBJECTIVE: Patient seems to be doing okay. OBJECTIVE: Vital Signs: Patient is currently afebrile. His vital signs are stable. General: No acute distress. Cardiovascular: Regular rate and rhythm. Lungs: Grossly clear. Abdomen: Soft, nontender. Genitourinary: Perianal and Cristina's gangrene wound with significant contamination from stools are hard to evaluate. LABORATORY: None this morning as of yet. 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 At this time, continue local wound care. He may need further debridement in the operating room and possibly diverting colostomy. We will continue to monitor him through the weekend. cc: Jorge Azevedo MD
[2019-08-01] MEDS: OXY IR PO SCH ×3 (06:43→21:10)
[2019-08-01] MEDS: KEFZOL 1 GM/D5W 1 GM/50 ML IVPB IV SCH ×3 (06:44→21:11)
[2019-08-01 07:36] LABS: BASO# 0.02 X1000 (0.0-0.2); BASO% 0.1 % (0.0-0.8); EOS% 1.5 % (0.0-10.0); HEMATOCRIT 31.9 % (42.0-52.0); HEMOGLOBIN 10.7 g/dL (14.0-18.0); IMM GRAN# 0.06 X1000 (0.0-0.04); IMM GRAN% 0.4 % (0.0-0.5); LYMPH# 1.36 X1000 (1.2-3.4); LYMPH% 9.9 % (20.5-51.1); MCH 31.8 PG (27-31); MCHC 33.5 g/dL (33-37); MCV 94.7 FL (81-99); MONO# 1.19 X1000 (0.11-0.59); MONO% 8.6 % (1.7-9.3); MPV 11.2 FL (7.4-10.4); NEUT# 10.94 X1000 (1.4-6.5); NEUT% 79.5 % (42.2-75.2); PLT 191 X1000 (130-400); RBC 3.37 XMIL (4.7-6.1); RDW 13.2 % (11.5-14.5); WBC 13.77 X1000 (4.8-10.8)
[2019-08-01 08:11] LABS: AGAP 12; BUN 10 mg/dL (8-22); CHLORIDE 104 mmol/L (98-107); COSMO 276; CREATININE 0.5 mg/dL (0.7-1.2); ESTIMATED GFR > 60; GLUCOSE 128 mg/dL (70-104); PHOSPHORUS 2.1 mg/dL (2.7-4.5); POTASSIUM 3.1 mmol/L (3.5-5.1); SODIUM 138 mmol/L (136-145); TCO2 22 mmol/L (25-35)
[2019-08-01 08:25] LABS: CALCIUM 6.8 mg/dL (8.8-10.2)
[2019-08-01 08:36] LABS: ANISOCYTOSIS 2+; LYMPHS 9 % (21-51); MONO 7 % (1-9); SEGS 83 % (42-75)
[2019-08-01] MEDS ORDERED: CALCIUM GLUCONATE 2 GM in NS 100 ML IV ONE (10:10)
[2019-08-01] MEDS ORDERED: POTASSIUM CHLORIDE 60 MEQ in NS 500 ML IV ONE (10:10)
[2019-08-01] MEDS ORDERED: SODIUM PHOSPHATE 35 MMOL in NS 250 ML IV ONE (10:10)
[2019-08-01] MEDS: LANTUS INSULIN SUBQ SCH (11:02)
[2019-08-01] MEDS: HUMALOG SUBQ SCH ×4 (11:04→22:07)
[2019-08-01] MEDS: MORPHINE IV PRN ×2 (11:13→14:54)
--- NOTE | 2019-08-01 11:47 | PROGRESS NOTE ---
DATE: 08/01/2019 SUBJECTIVE: Patient reports pain is much better controlled. No shortness of breath. No fever. No chills. OBJECTIVE: Vital Signs: Temperature 99.3 degrees, heart rate 77, respiratory rate 18, blood pressure 114/47, O2 saturation 98% on room air. General: This is a 64-year-old male, lying in bed, in no acute distress. Cardiovascular: S1 and S2 heard. No murmurs, gallops, or rubs. Regular rate and rhythm. Respiratory: Clear bilaterally to auscultation. No work of breathing or using accessory muscles. Abdomen: Soft, nontender to palpation. Bowel sounds present. No organomegaly. Extremities: No clubbing, cyanosis, or edema. Peripheral pulses present in both legs. Neurological: Patient alert and oriented x3. Moves 4 extremities. Genitourinary: Patient has a 12 x 20 cm wound in the perineal area covered with a dressing. LABORATORY DATA: Reviewed. ASSESSMENT AND PLAN: 1. Perianal necrotic infection and suspected Cristina gangrene with abscess. The patient is on IV cefazolin because of Klebsiella pneumoniae that grew into the wound culture. Also, we found Enterococcus so vancomycin has been added to his current treatment. We will continue with the same antibiotic management. General Surgery mentioned that he may need re-excisional debridement but we will see what Dr. Lynne has to say when he is back on Saturday. We will follow this patient closely. 2. Diabetes mellitus type 2, insulin dependent. We will continue with Lantus and sliding scale insulin before meals and also at bedtime. 3. Hypokalemia, resolved. 4. Hypomagnesemia, resolved. 5. Wound pain. That is under control. We will continue with the same management. 6. Disposition. We will continue to monitor this patient closely. We are following lead from General Surgery. cc: Nelson Mtz MD
[2019-08-01] MEDS: TUMS PO SCH ×2 (14:49→17:40)
[2019-08-01] MEDS: NS 1,000 ML IV SCH ×3 (15:16→21:16)
[2019-08-01] MEDS: VANCOMYCIN 1,250 MG in NS 250 ML IV SCH (17:40)
[2019-08-02] MEDS: TORADOL IV SCH ×4 (04:45→23:03)
[2019-08-02] MEDS: OFIRMEV 1000 MG/ISOTONIC SOLN 1,000 MG/100 ML BOTTLE IV SCH ×3 (04:45→18:17)
[2019-08-02] MEDS: VANCOMYCIN 1,250 MG in NS 250 ML IV SCH ×2 (04:46→19:22)
[2019-08-02] MEDS: KEFZOL 1 GM/D5W 1 GM/50 ML IVPB IV SCH ×3 (05:32→23:04)
[2019-08-02] MEDS: OXY IR PO SCH ×3 (05:32→23:03)
[2019-08-02 07:00] LABS: BASO# 0.02 X1000 (0.0-0.2); BASO% 0.1 % (0.0-0.8); EOS# 0.08 X1000 (0.0-0.7); EOS% 0.6 % (0.0-10.0); HEMATOCRIT 29.4 % (42.0-52.0); HEMOGLOBIN 9.9 g/dL (14.0-18.0); IMM GRAN# 0.04 X1000 (0.0-0.04); IMM GRAN% 0.3 % (0.0-0.5); LYMPH# 1.38 X1000 (1.2-3.4); LYMPH% 9.7 % (20.5-51.1); MCHC 33.7 g/dL (33-37); MCV 95.1 FL (81-99); MONO# 1.09 X1000 (0.11-0.59); MONO% 7.7 % (1.7-9.3); MPV 11.1 FL (7.4-10.4); NEUT# 11.57 X1000 (1.4-6.5); NEUT% 81.6 % (42.2-75.2); PLT 231 X1000 (130-400); RBC 3.09 XMIL (4.7-6.1); RDW 13.2 % (11.5-14.5); WBC 14.18 X1000 (4.8-10.8)
--- NOTE | 2019-08-02 07:01 | GENERAL SURGERY PROGRESS NOTE ---
DATE: 08/02/2019 SUBJECTIVE: The patient seems to be doing okay. Nursing staff reports that they are having a difficult time keeping stool out of the wound. OBJECTIVE: Vital Signs: The patient's current temperature is 99.9 degrees. Remainder of vital signs appear stable. General: No acute distress. HEENT: Normocephalic, atraumatic. Pupils equal, round, reactive to light. Mucous membranes moist. Oropharynx benign. Neck: Supple. Trachea midline. Cardiovascular: Regular rate and rhythm. Lungs: Grossly clear. Abdomen: Soft, nontender. Perineal and Cristina's wound still with significant contamination and hard to evaluate the wound. Extremities: Moves all extremities. Neurologic: Grossly intact. Skin: As noted above. LABORATORY DATA: Reviewed from yesterday. MICROBIOLOGY: Noted Klebsiella and Enterococcus. 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 At this time, continue local wound care. We are having to irrigate the wound out significantly. Will make the patient nothing by mouth after midnight, and he may need further debridement and a diverting loop colostomy. Will discuss with my partners who are going to be covering during the week next week about potentially doing this. Otherwise, continue local wound care. cc: Jorge Azevedo MD
[2019-08-02] MEDS: HUMALOG SUBQ SCH ×4 (07:06→21:22)
[2019-08-02 07:22] LABS: AGAP 14; BUN 11 mg/dL (8-22); CALCIUM 7.2 mg/dL (8.8-10.2); CHLORIDE 102 mmol/L (98-107); COSMO 274; CREATININE 0.6 mg/dL (0.7-1.2); ESTIMATED GFR > 60; GLUCOSE 144 mg/dL (70-104); PHOSPHORUS 2.6 mg/dL (2.7-4.5); POTASSIUM 3.5 mmol/L (3.5-5.1); SODIUM 136 mmol/L (136-145); TCO2 20 mmol/L (25-35)
[2019-08-02 08:39] LABS: INR 1.12; PROTIME 14.6 Seconds (11.0-16.0)
[2019-08-02] MEDS ORDERED: SODIUM PHOSPHATE 35 MMOL in NS 250 ML IV ONE (08:59)
[2019-08-02] MEDS ORDERED: CALCIUM GLUCONATE 2 GM in NS 100 ML IV ONE (08:59)
[2019-08-02] MEDS: LANTUS INSULIN SUBQ SCH (10:10)
[2019-08-02] MEDS: MORPHINE IV PRN ×3 (10:11→19:23)
[2019-08-02] MEDS: TUMS PO SCH ×3 (10:11→18:17)
--- NOTE | 2019-08-02 10:14 | PROGRESS NOTE ---
DATE: 08/02/2019 SUBJECTIVE: The patient reports pain is still bothering him. No shortness of breath. No fever or chills. OBJECTIVE: Vital Signs: Temperature 99.1 degrees, heart rate 81, respiratory rate 18, blood pressure 137/66, O2 saturation 100% on room air. General Examination: This is a 64-year-old male, lying in bed, in no acute distress. Cardiovascular: S1, S2 heard. No murmurs, gallops, or rubs. Regular rate and rhythm. Respiratory: Clear bilaterally to auscultation. No work of breathing or using accessory muscles. Abdomen: Soft, nontender to palpation. Bowel sounds present. No organomegaly. Extremities: No clubbing, cyanosis, or edema. Peripheral pulses present in both legs. Neurological: Patient is alert and oriented x3. Moves 4 extremities. Genitourinary: The patient has 12 x 20 cm wound in the perineal area covered by dressing. LABORATORY DATA: Reviewed. ASSESSMENT AND PLAN: 1. Perianal necrotic infection suspected for near gangrene with abscess. The patient continues to be on vancomycin for enterococcus and IV cefazolin for Klebsiella pneumonia. According to General Surgery, this patient will be placed NPO in anticipation for possible re-excisional debridement. Dr. Lynne will be back tomorrow. We will see what he has to say. 2. Diabetes mellitus type 2. We will continue with sliding scale insulin. Accu-Chek before meals and also at bedtime. 3. Hypokalemia, resolved. 4. Hyponatremia, resolved. 5. Wound pain. We will continue with current management. DISPOSITION: At this point, we will continue following the lead from General Surgery. cc: Nelson Mtz MD
[2019-08-02] MEDS ORDERED: NS 250 ML ONE (12:25)
[2019-08-02] MEDS: NS 1,000 ML IV SCH (14:02)
[2019-08-02] MEDS ORDERED: TYLENOL PO PRN (20:46)
[2019-08-03] MEDS: TORADOL IV SCH ×4 (06:16→20:48)
[2019-08-03] MEDS: KEFZOL 1 GM/D5W 1 GM/50 ML IVPB IV SCH ×3 (06:17→20:48)
[2019-08-03] MEDS: OXY IR PO SCH ×3 (06:17→22:19)
[2019-08-03 06:43] LABS: BASO# 0.01 X1000 (0.0-0.2); BASO% 0.1 % (0.0-0.8); EOS% 0.7 % (0.0-10.0); HEMATOCRIT 28.8 % (42.0-52.0); HEMOGLOBIN 9.9 g/dL (14.0-18.0); IMM GRAN# 0.06 X1000 (0.0-0.04); IMM GRAN% 0.4 % (0.0-0.5); LYMPH# 1.22 X1000 (1.2-3.4); LYMPH% 8.1 % (20.5-51.1); MCH 32.6 PG (27-31); MCHC 34.4 g/dL (33-37); MCV 94.7 FL (81-99); MONO# 1.25 X1000 (0.11-0.59); MONO% 8.3 % (1.7-9.3); MPV 10.8 FL (7.4-10.4); NEUT# 12.49 X1000 (1.4-6.5); NEUT% 82.4 % (42.2-75.2); PLT 300 X1000 (130-400); RBC 3.04 XMIL (4.7-6.1); RDW 13.4 % (11.5-14.5); WBC 15.13 X1000 (4.8-10.8)
[2019-08-03] MEDS: VANCOMYCIN 1,250 MG in NS 250 ML IV SCH ×2 (06:45→18:04)
[2019-08-03 07:00] LABS: AGAP 14; BUN 9 mg/dL (8-22); CALCIUM 7.4 mg/dL (8.8-10.2); CHLORIDE 101 mmol/L (98-107); COSMO 274; CREATININE 0.5 mg/dL (0.7-1.2); ESTIMATED GFR > 60; GLUCOSE 127 mg/dL (70-104); PHOSPHORUS 2.7 mg/dL (2.7-4.5); POTASSIUM 3.1 mmol/L (3.5-5.1); SODIUM 137 mmol/L (136-145); TCO2 22 mmol/L (25-35)
[2019-08-03] MEDS: HUMALOG SUBQ SCH ×4 (07:50→20:49)
[2019-08-03] MEDS: LANTUS INSULIN SUBQ SCH (08:49)
[2019-08-03] MEDS: TUMS PO SCH ×3 (08:50→16:12)
[2019-08-03] MEDS: NS 1,000 ML IV SCH (08:53)
[2019-08-03] MEDS ORDERED: POTASSIUM CHLORIDE 40 MEQ in 1/2 NS 1,000 ML IV SCH (09:45)
--- NOTE | 2019-08-03 09:56 | GENERAL SURGERY PROGRESS NOTE ---
DATE: 08/03/2019 SUBJECTIVE: The patient continues to have bowel movements. They were report earlier contaminating the wound. OBJECTIVE: General: He is awake, alert, and oriented x3. No acute distress. GI: Soft, nontender, nondistended. No organomegaly or mass. Skin: His perineum was examined. The perianal and perineal wound has some soupy surfaces. No gross pus. It is in close approximation today of anus and rectum. LABORATORY: White blood cell count 15,000, hemoglobin 9.9, hematocrit 28.8. Electrolytes reviewed and notable for potassium of 3.1. OTHER DATA: The nursing notes were reviewed revealing frequent stools contaminating the wound and making it difficult to keep the wound clean. ASSESSMENT AND PLAN: A 64-year-old male with Cristina gangrene status post debridement. He is now having complications of stool contaminating the wound. The wound needs a second debridement. I discussed with him diverting loop colostomy with wound debridement, including the risks and benefits of bleeding, wound infection, bowel injury, incisional hernia and other imponderables. He understands and agrees to proceed. cc: Leonardo Freeman MD
[2019-08-03] MEDS ORDERED: POTASSIUM CHLORIDE 40 MEQ/SWI 40 MEQ/100 ML IVPB IV ONE (10:24)
[2019-08-03] MEDS ORDERED: VERSED ONE (11:51)
[2019-08-03] MEDS ORDERED: FENTANYL ONE (11:52)
[2019-08-03] MEDS ORDERED: DIPRIVAN 1% ONE (11:52)
[2019-08-03] MEDS ORDERED: ZOFRAN ONE (11:57)
[2019-08-03] MEDS ORDERED: XYLOCAINE-MPF 2% ONE (11:57)
[2019-08-03] MEDS ORDERED: DECADRON ONE (11:57)
[2019-08-03] MEDS ORDERED: QUELICIN (DOSE) ONE (11:57)
[2019-08-03] MEDS ORDERED: NORCURON ONE (11:57)
[2019-08-03] MEDS ORDERED: NEO-SYNEPHRINE ONE (11:57)
[2019-08-03] MEDS ORDERED: STERILE WATER INJ. ONE (11:57)
[2019-08-03] MEDS ORDERED: SENSORCAINE 0.25%/EPI 1:200,000 ONE (12:32)
--- NOTE | 2019-08-03 14:41 | PROGRESS NOTE ---
DATE: 08/03/2019 SUBJECTIVE: The patient reports still having pain in the wound. He denies any fever or chills. OBJECTIVE: Vital Signs: Temperature 98.4 degrees, heart rate 77, respiratory rate 18, blood pressure 142/56, O2 saturation 99% on room air. General Examination: This is a 64-year-old male, lying in bed, in no acute distress. Cardiovascular: S1, S2 heard. No murmurs, gallops, or rubs. Regular rate and rhythm. Respiratory: Clear bilaterally to auscultation. No work of breathing or using accessory muscles. Abdomen: Soft, nontender to palpation. Bowel sounds present. No organomegaly. Extremities: No clubbing, cyanosis, or edema. Peripheral pulses present in both legs. Genitourinary: Patient has a 12 x 20 cm wound in the perineal area covered by dressing. LABORATORY DATA: Reviewed. ASSESSMENT AND PLAN: 1. Perianal necrotic infection, suspect Cristina gangrene with abscess. The patient according to General Surgery is going to need another debridement. They will do a diverting loop colostomy and another debridement as well. So at this point, we will continue following the lead from General Surgery. Will continue with vancomycin for Enterococcus infection and IV cefazolin for Klebsiella pneumonia. 2. Diabetes mellitus type 2. We will continue with sliding scale insulin and Accu-Chek before meals and also at bedtime. 3. Hypokalemia. Resolved. 4. Hyponatremia. Resolved. 5. Wound pain. We will continue with the current management. 6. Disposition. At this point, we will continue following the lead from General Surgery. cc: Nelson Mtz MD
--- NOTE | 2019-08-03 14:43 | OPERATIVE NOTE ---
PROCEDURE DATE: 08/03/2019 PREOP DIAGNOSIS: Cristina gangrene. POSTOP DIAGNOSIS: Cristina gangrene. PROCEDURE: 1. Diagnostic laparoscopy with laparoscopic loop diverting colostomy. 2. Debridement of Cristina gangrene for an area 77 cm2. TECHNIQUE: The patient was brought to the operating room and placed supine on the table. General anesthesia was induced. He was prepped and draped in usual sterile fashion on the abdomen. An 11 mm incision made below the umbilicus. The fascia was exposed and incised sharply. Entry into the peritoneal cavity was obtained under direct vision with the Optiview device. Pneumoperitoneum was established. The camera was inserted. There was no evidence of injury to underlying structures. Survey of the abdomen revealed clear ascites diffusely. The liver did not appear to be particularly nodular. The omentum appeared to be normal. The anterior surface of the bowel appeared to be normal. I did not see any peritoneal studding. The transverse colon easily reached up to the anterior abdominal wall where a skin marker was used to make a leena to the left of midline over the left rectus muscle. Also put two 5 mm incision ports under direct vision in the right upper quadrant, left lower quadrant. This was used to manipulate the colon. I did obtain a sample of the ascites for analysis. The colon was grasped with a locking grasper. I then made an incision on the skin over the left rectus muscle and carried it down through the subcutaneous tissue sharply and with cautery. The rectus muscle was partially divided and then spread and the posterior rectus sheath was divided large enough to admit both ends of the colon and a finger. A bridge was placed under the colon after dividing the mesentery with cautery without interrupting the marginal artery supply. At this point we removed our ports and desufflated the abdomen. The umbilical port site fascia was closed with a [id number] 0 Vicryl. The skin was closed with 4-0 subcuticular Biosyn, Steri-Strips. These areas were covered with a sterile towel. I then made a transverse colotomy with cautery over the tinea and matured the edges of the colostomy to the dermis with interrupted 3-0 Polysorb in interrupted fashion. An ostomy appliance was placed under the skin bridge and the skin bridge was anchored to the ostomy with nylon suture. We then turned our attention to the peritoneum. He was placed in candy-cane stirrups. He was prepped and draped in usual sterile fashion. There was notable stool contamination throughout the wound prior to beginning this procedure. After that was cleaned out and then he was prepped with Betadine, I used Metzenbaum forceps to sharply debride skin, subcutaneous fat and necrotic fascia throughout the edges of the wound. Cautery was used for hemostasis. I copiously irrigated with saline and then packed the wound with a Kerlix gauze. He tolerated this well. There were no apparent complications. cc: Leonardo Freeman MD
[2019-08-03 15:01] LABS: BODY FLUID SOURCE PERITONEAL FLUID; WBC BF 339 /cumm
[2019-08-03 15:24] LABS: MONOS 11 %; POLYS 89 %
[2019-08-03 15:36] LABS: ALBUMIN BODY FLUID 0.5 g/dL
[2019-08-04] MEDS: KEFZOL 1 GM/D5W 1 GM/50 ML IVPB IV SCH ×5 (01:29→22:00)
[2019-08-04] MEDS: TORADOL IV SCH ×3 (01:30→17:06)
[2019-08-04] MEDS: VANCOMYCIN 1,250 MG in NS 250 ML IV SCH ×2 (05:17→18:08)
[2019-08-04] MEDS: OXY IR PO SCH ×3 (06:30→22:00)
[2019-08-04 06:41] LABS: BASO# 0.01 X1000 (0.0-0.2); BASO% 0.1 % (0.0-0.8); EOS# 0.03 X1000 (0.0-0.7); EOS% 0.2 % (0.0-10.0); HEMATOCRIT 26.6 % (42.0-52.0); IMM GRAN# 0.04 X1000 (0.0-0.04); IMM GRAN% 0.3 % (0.0-0.5); LYMPH# 1.28 X1000 (1.2-3.4); LYMPH% 9.8 % (20.5-51.1); MCH 32.3 PG (27-31); MCHC 33.8 g/dL (33-37); MCV 95.3 FL (81-99); MONO# 1.38 X1000 (0.11-0.59); MONO% 10.5 % (1.7-9.3); NEUT# 10.38 X1000 (1.4-6.5); NEUT% 79.1 % (42.2-75.2); PLT 367 X1000 (130-400); RBC 2.79 XMIL (4.7-6.1); RDW 13.4 % (11.5-14.5); WBC 13.12 X1000 (4.8-10.8)
[2019-08-04] MEDS: HUMALOG SUBQ SCH ×4 (06:49→22:02)
[2019-08-04 07:06] LABS: AGAP 9; BUN 12 mg/dL (8-22); CALCIUM 7.3 mg/dL (8.8-10.2); CHLORIDE 102 mmol/L (98-107); COSMO 286; CREATININE 0.6 mg/dL (0.7-1.2); ESTIMATED GFR > 60; GLUCOSE 386 mg/dL (70-104); POTASSIUM 3.6 mmol/L (3.5-5.1); SODIUM 135 mmol/L (136-145); TCO2 24 mmol/L (25-35)
[2019-08-04] MEDS: PERIDEX MT SCH ×2 (11:11→22:01)
[2019-08-04] MEDS: LANTUS INSULIN SUBQ SCH (11:11)
[2019-08-04] MEDS: TUMS PO SCH ×3 (11:11→17:01)
[2019-08-04] MEDS: SODIUM CHLORIDE 0.9% INJ SCH ×2 (12:54→22:01)
[2019-08-04] MEDS: PROTONIX IV SCH ×2 (12:54→22:01)
[2019-08-04] MEDS: NS 1,000 ML IV SCH ×2 (12:55→16:48)
--- NOTE | 2019-08-04 13:52 | PROGRESS NOTE ---
DATE: 08/04/2019 SUBJECTIVE: Patient reports feeling nauseated. What he is receiving for nausea is not working properly. He also complains of heartburn as well. OBJECTIVE: Vital Signs: Temperature 99.2, heart rate 86, respiratory rate 16, and blood pressure 132/60. O2 saturation 94% on room air. General: This is a 64-year-old female lying in bed in no acute distress. Cardiovascular: S1 and S2 heard. No murmurs, gallops, or rubs. Regular rate and rhythm. Respiratory: Clear bilaterally to auscultation. No work of breathing or using accessory muscles. Abdomen: Soft. There is a colostomy bag in place. No signs of peritoneal irritation. Genitourinary: The perineal wound covered by dressing. Extremities: No clubbing, cyanosis, or edema. Peripheral pulses present in both legs. Neurological: Patient alert and oriented x3. Moves all 4 extremities. LABORATORY DATA: White cell count 13.12, hemoglobin 9.0, hematocrit 26.6, and platelets 367,000. Normal BMP except elevated blood sugar of 386. ASSESSMENT AND PLAN: 1. Perianal necrotic infection suspected Cristina's gangrene with abscess status post diagnostic laparoscopy with laparoscopic loop diverting colostomy, and debridement of Cristina gangrene. Clinically, patient is stable. We will continue with current antibiotic management. In this case, it is vancomycin for Enterococcus infection, and IV cefazolin for Klebsiella pneumonia. 2. Diabetes mellitus type 2. We will continue with sliding scale insulin. Accu-Chek before meals and also at bedtime. His blood sugar has been really high. I think because of this, not able to treat infection but thinking that he may need more insulin if his blood sugar continues to be high. 3. Hyponatremia resolved. 4. Wound pain. We will continue his current management. 5. Disposition. At this point, following the lead from General Surgery. cc: Nelson Mtz MD
--- NOTE | 2019-08-04 14:57 | GENERAL SURGERY PROGRESS NOTE ---
DATE: 08/04/2019 SUBJECTIVE: The patient did have some vomiting this morning. He has been trying to drink some liquids since then. OBJECTIVE: Vital Signs: He is afebrile. His vital signs are stable. General: He is awake, alert, oriented x3. No acute distress. Gastrointestinal: Soft, nondistended, appropriately tender. Incisions are clean, dry, and intact. Stoma is pink. There is some stool in the bag. LABORATORY: White blood cell count 13, hemoglobin 9. Electrolytes reviewed and unremarkable. ASSESSMENT AND PLAN: A 64-year-old male status post diverting loop colostomy for severe Cristina's gangrene and contamination of his wound. We will continue dressing changes to the perineal wound daily and as needed for soilage. We will keep him on a liquid diet for now until his nausea improves. We will discontinue the Santiago catheter tomorrow. cc: Leonardo Freeman MD
[2019-08-04] MEDS: LOVENOX SUBQ SCH (22:00)
[2019-08-04] MEDS: TYLENOL PO PRN (22:01)
[2019-08-05] MEDS: MORPHINE IV PRN (00:39)
[2019-08-05] MEDS: PROTONIX IV SCH ×3 (02:18→23:57)
[2019-08-05] MEDS ORDERED: DUONEB (A & A) INH PRN (04:53)
[2019-08-05 05:15] LABS: ALLEN TEST YES; BE 2.4 mmoll (-3.0-3.0); BLOOD TYPE ARTERIAL; HCO3-(ACT) 26.7 mmoll (20.0-26.0); METHB 1.4 % (0.0-1.5); MODALITY PRB; O2(CT) 13.6 mL/dL (15.0-23.0); O2HB 91.7 % (95.0-99.0); PCO2(98.6) 37 mmHg (35-45); PO2(98.6) 58 mmHg (60-100); SAMPLE BLOOD; SAO2 94.8 % (95.0-100.0); THB 10.5 g/dL (11.5-17.4); pH(98.6) 7.46 (7.35-7.45)
[2019-08-05] MEDS: VANCOMYCIN 1,250 MG in NS 250 ML IV SCH (05:44)
[2019-08-05] MEDS: KEFZOL 1 GM/D5W 1 GM/50 ML IVPB IV SCH (05:44)
[2019-08-05] MEDS: OXY IR PO SCH ×3 (05:48→23:56)
[2019-08-05 06:37] LABS: BASO# 0.03 X1000 (0.0-0.2); BASO% 0.2 % (0.0-0.8); EOS# 0.04 X1000 (0.0-0.7); EOS% 0.3 % (0.0-10.0); HEMATOCRIT 29.2 % (42.0-52.0); HEMOGLOBIN 9.5 g/dL (14.0-18.0); IMM GRAN# 0.02 X1000 (0.0-0.04); IMM GRAN% 0.1 % (0.0-0.5); LYMPH# 1.25 X1000 (1.2-3.4); LYMPH% 8.9 % (20.5-51.1); MCHC 32.5 g/dL (33-37); MCV 98.3 FL (81-99); MONO# 1.79 X1000 (0.11-0.59); MONO% 12.7 % (1.7-9.3); MPV 10.3 FL (7.4-10.4); NEUT# 10.91 X1000 (1.4-6.5); NEUT% 77.8 % (42.2-75.2); PLT 472 X1000 (130-400); RBC 2.97 XMIL (4.7-6.1); RDW 13.7 % (11.5-14.5); WBC 14.04 X1000 (4.8-10.8)
[2019-08-05 06:52] LABS: AGAP 10; BUN 9 mg/dL (8-22); CALCIUM 7.3 mg/dL (8.8-10.2); CHLORIDE 101 mmol/L (98-107); COSMO 274; CREATININE 0.6 mg/dL (0.7-1.2); ESTIMATED GFR > 60; GLUCOSE 225 mg/dL (70-104); POTASSIUM 3.4 mmol/L (3.5-5.1); SODIUM 134 mmol/L (136-145); TCO2 23 mmol/L (25-35)
[2019-08-05] MEDS: HUMALOG SUBQ SCH ×4 (07:02→21:08)
--- NOTE | 2019-08-05 07:23 | Diag Imaging Result Doc PS360 ---
EXAM: CHEST-PORTABLE HISTORY: Hypoxia, Cough TECHNIQUE: Single view COMPARISON: 07/27/2019 FINDINGS: Interval development of dense bilateral infiltrates. There is also a small to moderate-sized right pleural effusion. Right-sided PICC line in good position. IMPRESSION: Development of dense bilateral infiltrates in the right pleural effusion. Electronically signed by Chinmay Henry 08/05/2019 7:21 AM
[2019-08-05] MEDS ORDERED: LASIX IV ONE (09:17)
[2019-08-05] MEDS: NS 1,000 ML IV SCH ×2 (09:28→09:51)
--- NOTE | 2019-08-05 09:30 | GENERAL SURGERY PROGRESS NOTE ---
DATE: 08/05/2019 SUBJECTIVE: The patient has had no more nausea or vomiting. He has been tolerating liquids last night and this morning. However, he has been more short of breath. OBJECTIVE: Vital Signs: He is afebrile, pulse 91, respirations 22, blood pressure 139/71, O2 saturation 94% on a nonrebreather, he was 90% overnight on 2 and 4 L nasal cannula. General: He is awake, alert, no acute distress. Respiratory: Bilateral breath sounds. No increased work of breathing. Gastrointestinal: Soft, appropriately tender. Incision is clean, dry, and intact. Stoma is pink and patent. LABORATORY DATA: White blood cell count 14, hemoglobin 9.5, hematocrit 29.2. PH 7.46, pCO2 of 37, PaO2 of 58, bicarb 26, base excess 2. IMAGING: Chest x-ray this morning shows development of dense bilateral infiltrates and a right pleural effusion. OTHER DATA: He appears to be quite a few liters positive over the last few days. 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 I will start with a trial of Lasix today to mobilize this fluid. He may end up needing a thoracentesis if he worsens. We will advance his diet to a diabetic diet as tolerated. Continue packing his perineal wound daily. cc: Leonardo Freeman MD
[2019-08-05] MEDS: LANTUS INSULIN SUBQ SCH ×2 (09:38→21:07)
[2019-08-05] MEDS: PERIDEX MT SCH ×2 (09:38→21:08)
[2019-08-05] MEDS: TUMS PO SCH ×3 (09:38→17:28)
[2019-08-05] MEDS: ZOSYN 3.375 GM in NS 50 ML IV SCH ×3 (09:39→21:07)
[2019-08-05] MEDS: DUONEB (A & A) INH SCH ×5 (09:45→23:19)
[2019-08-05] MEDS: ZYVOX 600 MG/D5W 600 MG/300 ML IVPB IV SCH ×2 (11:12→23:57)
--- NOTE | 2019-08-05 12:29 | PROGRESS NOTE ---
DATE: 08/05/2019 SUBJECTIVE: The patient according to nursing staff, has been feeling short of breath. Since the last 5 days before surgery, he has been requiring 2 L of oxygen but his oxygen needs has increased dramatically to non-rebreather mask. At this point, he reports shortness of breath. Nausea is better. OBJECTIVE: Vital Signs: Temperature 98.4 degrees, heart rate 81, respiratory 22, blood pressure 139/71. O2 saturation 94% on nonrebreather mask. General Examination: This is a 64-year-old male, lying in bed, in no acute distress. Cardiovascular: S1 and S2 heard. No murmurs, gallops, or rubs. Regular rate and rhythm. Respiratory: Coarse breath sounds noted in both pulmonary bases as well as minimal wheezing. Patient not using any accessory muscles or having work of breathing. Abdomen: Soft. There is a colostomy bag in place with no signs of peritoneal irritation. Genitourinary: Perineal wound covered by dressing. Extremities: No clubbing, cyanosis, or edema. Peripheral pulses present in both legs. Neurological: Patient is alert and oriented x3. Moves 4 extremities. LABORATORY DATA: White cell count 14.04, hemoglobin 9.5, hematocrit 29.2, platelets 472,000. ABG shows pH 7.42 with pCO2 37, PO2 58, potassium 3.4. ASSESSMENT AND PLAN: 1. Acute hypoxemic respiratory failure secondary to possible aspiration pneumonia versus volume overload. The patient overnight started requiring more oxygen supplementation. He was complaining of shortness of breath this morning. His physical exam disclosed more rhonchi and minimal wheezing in both pulmonary bases. I think this patient may have aspirated although volume overload is another possibility. In that regard, we are going to check a CT of the chest this morning and see what it shows. The portable x-ray showed development of dense bilateral infiltrates in the right pleural effusion. ABG shows hypoxemic respiratory failure. So, at this point, also we will change antibiotics to Zosyn and Zyvox will continue to monitor. 2. Perianal necrotic infections suspected Cristina gangrene with abscess status post diagnostic laparoscopy with laparoscopic loop diverting colostomy, and debridement of Cristina gangrene. General Surgery following this patient. We will follow recommendations. 3. Diabetes mellitus type 2. We will continue with his Accu-Chek before meals and also at bedtime. Currently, he is on Lantus 10 units subcutaneous daily. I think at this point we will change to 2 times per day. We will see how this patient does. 4. Hyponatremia resolved. 5. Wound pain. We will continue with the current management. DISPOSITION: I think at this point, considering his oxygen needs, I am going to transfer this patient to PVC unit and we will monitor this patient closely. cc: Nelson Mtz MD
[2019-08-05] MEDS: LASIX IV SCH (15:06)
[2019-08-05] MEDS: TYLENOL PO PRN ×2 (15:14→23:56)
--- NOTE | 2019-08-05 17:35 | Diag Imaging Result Doc PS360 ---
EXAM: CT THORAX W/CONTRAST HISTORY: Hypoxia,Alden Infiltrates,R Plerual Effusion TECHNIQUE: CT chest with intravenous contrast COMPARISON: None. FINDINGS: There is a moderate sized right-sided pleural effusion measuring 5.5 cm posteriorly and inferiorly in the midline and a smaller left pleural effusion measuring 2.8 cm. No cardiomegaly. No aortic aneurysm or dissection. No central pulmonary emboli. There are small mediastinal nodes. Severe emphysema. There are increased interstitial markings throughout both upper lobes and the left lower lobe. There are air bronchograms and atelectasis to the right lower lobe. Limited images through the upper abdomen reveal a large midline anterior abdominal wall hernia IMPRESSION: 1.Bilateral pleural effusions 2.Bilateral infiltrates and fibrosis as well as right lower lobe atelectasis This exam was performed using automated exposure control, adjustment of mA or kV according to patient size, and/or use of iterative reconstruction technique. Electronically signed by Chinmay Henry 08/05/2019 5:32 PM
[2019-08-05] MEDS: LOVENOX SUBQ SCH (21:07)
[2019-08-06] MEDS: MORPHINE IV PRN (01:47)
[2019-08-06] MEDS: ZOSYN 3.375 GM in NS 50 ML IV SCH ×4 (02:23→23:55)
[2019-08-06] MEDS: DUONEB (A & A) INH SCH ×6 (02:56→22:43)
[2019-08-06] MEDS: LASIX IV SCH ×2 (02:57→15:06)
[2019-08-06 06:49] LABS: BASO# 0.06 X1000 (0.0-0.2); BASO% 0.4 % (0.0-0.8); EOS# 0.15 X1000 (0.0-0.7); HEMATOCRIT 28.8 % (42.0-52.0); HEMOGLOBIN 9.8 g/dL (14.0-18.0); IMM GRAN# 0.04 X1000 (0.0-0.04); IMM GRAN% 0.3 % (0.0-0.5); LYMPH# 1.61 X1000 (1.2-3.4); LYMPH% 10.5 % (20.5-51.1); MCH 32.8 PG (27-31); MCV 96.3 FL (81-99); MONO# 1.65 X1000 (0.11-0.59); MONO% 10.7 % (1.7-9.3); MPV 10.2 FL (7.4-10.4); NEUT# 11.85 X1000 (1.4-6.5); NEUT% 77.1 % (42.2-75.2); PLT 493 X1000 (130-400); RBC 2.99 XMIL (4.7-6.1); RDW 13.3 % (11.5-14.5); WBC 15.36 X1000 (4.8-10.8)
[2019-08-06] MEDS: HUMALOG SUBQ SCH ×3 (07:00→17:09)
[2019-08-06 07:24] LABS: AGAP 13; BUN 6 mg/dL (8-22); CALCIUM 7.3 mg/dL (8.8-10.2); CHLORIDE 94 mmol/L (98-107); COSMO 269; CREATININE 0.6 mg/dL (0.7-1.2); ESTIMATED GFR > 60; GLUCOSE 116 mg/dL (70-104); POTASSIUM 3.2 mmol/L (3.5-5.1); SODIUM 135 mmol/L (136-145); TCO2 28 mmol/L (25-35)
[2019-08-06] MEDS: OXY IR PO SCH ×2 (08:14→17:08)
[2019-08-06] MEDS: LANTUS INSULIN SUBQ SCH ×2 (10:07→23:56)
[2019-08-06] MEDS: ZYVOX 600 MG/D5W 600 MG/300 ML IVPB IV SCH (10:08)
[2019-08-06] MEDS: PERIDEX MT SCH ×2 (10:08→23:56)
[2019-08-06] MEDS: TUMS PO SCH ×3 (10:09→17:08)
--- NOTE | 2019-08-06 10:40 | GENERAL SURGERY PROGRESS NOTE ---
DATE: 08/06/2019 SUBJECTIVE: The patient reports inability to void yesterday due to swelling in the penis so his Santiago catheter was put back in. He has dumped out over 5 L of fluid yesterday. He still has some shortness of breath and abdominal soreness. He is eating a little food. OBJECTIVE: He is afebrile, pulse 85, respirations 17 to 18, blood pressure 142/44, and O2 saturation 93 to 95 percent. However, he is on a non-rebreather. GI soft and nondistended, appropriately tender. Incisional dressing is clean and dry. Stoma is pink and patent. LABORATORY: White blood cell count 60270, hemoglobin 9.8, and hematocrit 28. Electrolytes reviewed and unremarkable. IMAGING: CT of the chest was reviewed yesterday showing a moderately large right pleural effusion, smaller left pleural effusion, and right lower lobe atelectasis. The CT report is erroneous in describing an abdominal ventral hernia that is in fact his loop colostomy. ASSESSMENT AND PLAN: A 64-year-old male status post loop colostomy for severe perineal wound contamination. He had Cristina's gangrene status post debridement. He now has hypoxia due to bilateral pleural effusions. He also has baseline emphysema. He is getting Lasix now which I think is helping. We will also get an ultrasound-guided thoracentesis on the right side. Hopefully, that will relieve his hypoxia. Continue dressing changes to the perineum daily. cc: Leonardo Freeman MD
[2019-08-06 11:03] LABS: INR 1.32; PROTIME 16.6 Seconds (11.0-16.0)
[2019-08-06 11:04] LABS: PTT 37.2 Seconds (22.3-41.8)
[2019-08-06] MEDS: PROTONIX IV SCH (13:00)
[2019-08-06] MEDS ORDERED: KLOR-CON PO ONE (13:17)
--- NOTE | 2019-08-06 14:21 | Diag Imaging Result Doc PS360 ---
EXAM: CHEST-2 VIEWS 08/06/2019 HISTORY: POST U/S RIGHT THORACENTESIS TECHNIQUE: Upright inspiratory expiratory chest COMMENT: There is no evidence of pneumothorax. The right pleural fluid collection has diminished considerably following thoracentesis compared to the previous study of 08/05/2019. IMPRESSION: Improved right pleural effusion. No evidence of pneumothorax. Electronically signed by Felipe Ferguson 08/06/2019 2:19 PM
--- NOTE | 2019-08-06 14:48 | Diag Imaging Result Doc PS360 ---
EXAM: US THORACENTESIS W/IMAGE GUIDE 08/06/2019 HISTORY: right pleural effusion, hypoxia TECHNIQUE: Ultrasound-guided thoracentesis COMMENT: The risks and benefits of the procedure including the possibility of bleeding, infection, pneumothorax, or reaction to lidocaine was discussed with the patient and he agreed to the procedure. Following ultrasonographic localization of the fluid collection in the right pleural space, and sterile preparation the skin, the skin and deeper soft tissues were infiltrated with 1% lidocaine. Subsequently the thoracentesis catheter was placed posterior laterally and 1500 mL of clear slightly yellowish fluid was removed. This is sent to the laboratory in its entirety. IMPRESSION: Successful ultrasound-guided thoracentesis. Electronically signed by Felipe Ferguson 08/06/2019 2:45 PM
[2019-08-06 16:27] LABS: AMYLASE BODY FLUID 10 U/L; GLUCOSE BODY FLUID 162 mg/dL; LDH BODY FLUID 76 U/L; TOTAL PROT BODY FLUID 0.8 g/dL
[2019-08-06 17:12] LABS: BODY FLUID SOURCE PLEURAL FLUID; MONOS 21 %; POLYS 79 %; SPECIMEN PLEURAL FLUID; WBC BF 75 /cumm
--- NOTE | 2019-08-06 18:02 | PROGRESS NOTE ---
DATE: 08/06/2019 SUBJECTIVE: Patient reports feeling still short of breath, but less after thoracentesis performed. OBJECTIVE: Vital Signs: Temperature 98.6 degrees, heart rate 91, respiratory rate 18, blood pressure 151/61, O2 saturation 98% on non-rebreather mask. General Examination: This is a chronically ill-appearing, 64-year-old, male, lying in bed in no acute distress. Cardiovascular: S1, S2 heard. No murmurs, gallops, or rubs. Regular rate and rhythm. Respiratory: Decreased breath sounds in the right base. Some coarse breath sounds in the left base. Minimal crackles noted. Patient is not using any accessory muscles or having work of breathing. Abdomen: Soft. Colostomy bag in place with no signs of peritoneal irritation. Genitourinary: Wound is covered by dressing. Extremities: No clubbing, cyanosis, or edema. Peripheral pulses present in both legs. Neurological: Patient alert and oriented x3. Moves 4 extremities. LABORATORY DATA: White cell count 15.36, hemoglobin 9.8, hematocrit 28.8, platelets 493,000. Sodium 3.2, calcium 7.3. ASSESSMENT AND PLAN: 1. Acute hypoxemic respiratory failure secondary to large pleural effusion. Thoracentesis removed 1.5 L of pleural fluid. We have sent samples for analysis. There was a concern for possible aspiration pneumonia, so this patient overnight has been placed on IV antibiotics. After thoracentesis, x-ray did not show any infiltrates, that most likely related to volume overload than an infectious cause. At this point, I do not think we need to continue with Zyvox. Zosyn will be continue just because of the Cristina gangrene. We will continue to monitor this patient closely. 2. Perianal necrotic infection, suspected Cristina gangrene. Status post diagnostic laparoscopy with laparoscopic loop diverting colostomy and debridement of Cristina gangrene. General Surgery following this patient. We will follow recommendations. 3. Diabetes mellitus type 2. We will continue with Accu-Chek before meals and also at bedtime. We will continue Lantus 10 units subcutaneous. 4. Hyponatremia. Resolved. 5. Wound pain. We will continue current management. Patient looks definitely more calmed down. 6. Disposition. At this point, we will continue to monitor this patient closely. cc: Nelson Mtz MD
[2019-08-06] MEDS: LOVENOX SUBQ SCH (23:57)
[2019-08-06] MEDS: SODIUM CHLORIDE 0.9% INJ SCH (23:57)
[2019-08-07] MEDS: HUMALOG SUBQ SCH ×5 (00:18→21:50)
[2019-08-07] MEDS: PROTONIX IV SCH ×2 (00:19→12:57)
[2019-08-07] MEDS: OXY IR PO SCH ×3 (00:41→17:05)
[2019-08-07] MEDS: LASIX IV SCH ×2 (02:36→17:05)
[2019-08-07] MEDS: DUONEB (A & A) INH SCH ×6 (03:20→23:34)
[2019-08-07] MEDS: TYLENOL PO PRN (03:37)
[2019-08-07] MEDS: ZOSYN 3.375 GM in NS 50 ML IV SCH ×4 (05:43→22:07)
[2019-08-07 06:37] LABS: BASO# 0.02 X1000 (0.0-0.2); BASO% 0.1 % (0.0-0.8); EOS# 0.13 X1000 (0.0-0.7); EOS% 0.8 % (0.0-10.0); HEMATOCRIT 25.8 % (42.0-52.0); HEMOGLOBIN 8.5 g/dL (14.0-18.0); IMM GRAN# 0.05 X1000 (0.0-0.04); IMM GRAN% 0.3 % (0.0-0.5); LYMPH# 1.37 X1000 (1.2-3.4); LYMPH% 8.7 % (20.5-51.1); MCH 31.4 PG (27-31); MCHC 32.9 g/dL (33-37); MCV 95.2 FL (81-99); MONO# 1.27 X1000 (0.11-0.59); NEUT# 12.95 X1000 (1.4-6.5); NEUT% 82.1 % (42.2-75.2); PLT 491 X1000 (130-400); RBC 2.71 XMIL (4.7-6.1); RDW 12.8 % (11.5-14.5); WBC 15.79 X1000 (4.8-10.8)
[2019-08-07 06:58] LABS: AGAP 10; BUN 6 mg/dL (8-22); CALCIUM 7.6 mg/dL (8.8-10.2); CHLORIDE 93 mmol/L (98-107); COSMO 272; CREATININE 0.6 mg/dL (0.7-1.2); ESTIMATED GFR > 60; GLUCOSE 100 mg/dL (70-104); POTASSIUM 2.9 mmol/L (3.5-5.1); SODIUM 137 mmol/L (136-145); TCO2 34 mmol/L (25-35)
[2019-08-07] MEDS: PERIDEX MT SCH ×2 (10:12→22:07)
[2019-08-07] MEDS: TUMS PO SCH ×3 (10:12→17:05)
[2019-08-07] MEDS: LANTUS INSULIN SUBQ SCH ×2 (10:20→22:07)
[2019-08-07] MEDS: MORPHINE IV PRN (11:25)
[2019-08-07 13:16] LABS: I-STAT BE 0 mmoll (-2-3); I-STAT GLUCOSE 102 mg/dL (70-105); I-STAT HEMOGLOBIN 7.8 g/dL (11.5-17.5); I-STAT K 3.8 mmoll (3.5-4.9); I-STAT SODIUM 139 mmoll (138-146); I-STAT TCO2 26 mmoll (23-27); I-STAT pH 7.362 (7.350-7.450)
[2019-08-07] MEDS: POTASSIUM CHLORIDE 60 MEQ in NS 500 ML IV SCH ×2 (13:40→22:08)
--- NOTE | 2019-08-07 14:30 | PROGRESS NOTE ---
DATE: 08/07/2019 SUBJECTIVE: Patient reports still complaining of chest pain, complaining of pain in his right hip, most likely related to his lack of movement. Denies any other complaints. He reports breathing better, although he is still requiring oxygen by non-rebreather mask. OBJECTIVE: Vital Signs: Temperature 98.6 degrees, heart rate 87, respiratory rate 16, blood pressure 129/61, O2 saturation 100% on non-rebreather mask. General examination: This is a chronically ill-appearing, 64-year-old male, lying in bed in no acute distress. Cardiovascular exam: S1, S2 heard. No murmurs, gallops, or rubs. Regular rate and rhythm. Respiratory exam: Minimal coarse breath sounds noted in both pulmonary bases. A little bit decreased in the left base. Minimal crackles noted as well. Patient is not using any accessory muscles or having work of breathing. Abdomen: Soft. Colostomy bag in place, but no signs of peritoneal irritation. Genitourinary: Wound is covered by dressing. Extremities: No clubbing, cyanosis, or edema. Peripheral pulses present in both legs. Neurological exam: The patient alert and oriented x3. Moves 4 extremities. LABORATORY DATA: White cell count 15.79, hemoglobin 8.5, hematocrit 25.8, platelets 491 with potassium 2.9, creatinine 0.6. ASSESSMENT AND PLAN: 1. Acute hypoxemic respiratory failure secondary to large pleural effusion. Even though with thoracenteses, we were able to remove 1.5 liters of pleural fluid, he continues to require oxygen by non-rebreather mask. We will instruct nurse to try to wean off oxygen for this patient. White cell count continues to be elevated. The patient is on Zosyn. We will continue with the same management. 2. Perianal necrotic infection, suspect Cristina gangrene, status post diagnostic laparoscopy with laparoscopy loop diverting colostomy and debridement of Cristina gangrene. General Surgery following this patient. We will follow recommendations. 3. Diabetes mellitus type 2. We will continue with Accu-Chek before meals and also at bedtime. We will continue with Lantus subcutaneous daily as well. 4. Hyponatremia, resolved. 5. Wound pain. We will continue with current management. 6. Disposition: We will continue to monitor this patient closely following lead from General Surgery. cc: Nelson Mtz MD
--- NOTE | 2019-08-07 18:53 | GENERAL SURGERY PROGRESS NOTE ---
DATE: 08/07/2019 SUBJECTIVE: The patient is doing better. He is breathing better, but still requiring oxygen. OBJECTIVE: He is afebrile. Vital signs are stable.General: He is awake, alert, and oriented x3. No acute distress. Gastrointestinal: Soft, nondistended, appropriately tender. Stoma is pink and patent. Skin: The perineal wound was examined. There are no necrotic areas or purulent areas. The wound is starting to granulate. It looks much chicken cleaner. LABORATORY: White cell count 15,000, hemoglobin 8.5. Electrolytes reviewed and unremarkable. ASSESSMENT/PLAN: A 64-year-old male with Cristina's gangrene, status post incision and drainage, followed by a diverting loop colostomy, then development of pleural effusions and pulmonary edema. This appears to be improved after thoracentesis and Lasix. We are trying to wean his oxygen now to get him ready to go to rehab next week. cc: Leonardo Freeman MD
[2019-08-07] MEDS: LOVENOX SUBQ SCH (22:07)
[2019-08-08] MEDS: OXY IR PO SCH ×3 (00:31→17:10)
[2019-08-08] MEDS: SODIUM CHLORIDE 0.9% INJ SCH ×2 (00:31→12:21)
[2019-08-08] MEDS: PROTONIX IV SCH ×2 (00:32→12:20)
[2019-08-08] MEDS: TYLENOL PO PRN ×2 (00:55→21:19)
[2019-08-08] MEDS: LASIX IV SCH ×2 (02:29→15:08)
[2019-08-08] MEDS: DUONEB (A & A) INH SCH ×6 (03:02→23:33)
[2019-08-08] MEDS: ZOSYN 3.375 GM in NS 50 ML IV SCH ×4 (06:39→20:41)
[2019-08-08] MEDS: HUMALOG SUBQ SCH ×4 (06:56→20:42)
[2019-08-08 07:38] LABS: BASO# 0.04 X1000 (0.0-0.2); BASO% 0.3 % (0.0-0.8); EOS# 0.18 X1000 (0.0-0.7); EOS% 1.4 % (0.0-10.0); HEMATOCRIT 25.4 % (42.0-52.0); HEMOGLOBIN 8.2 g/dL (14.0-18.0); IMM GRAN# 0.03 X1000 (0.0-0.04); IMM GRAN% 0.2 % (0.0-0.5); LYMPH# 1.41 X1000 (1.2-3.4); LYMPH% 11.1 % (20.5-51.1); MCH 31.2 PG (27-31); MCHC 32.3 g/dL (33-37); MCV 96.6 FL (81-99); MONO# 0.97 X1000 (0.11-0.59); MONO% 7.6 % (1.7-9.3); NEUT# 10.07 X1000 (1.4-6.5); NEUT% 79.4 % (42.2-75.2); PLT 495 X1000 (130-400); RBC 2.63 XMIL (4.7-6.1); RDW 12.9 % (11.5-14.5)
[2019-08-08] MEDS: PERIDEX MT SCH ×2 (08:45→20:41)
[2019-08-08] MEDS: LANTUS INSULIN SUBQ SCH ×2 (08:45→20:42)
[2019-08-08] MEDS: TUMS PO SCH ×3 (08:46→17:10)
[2019-08-08 11:19] LABS: AGAP 6; ALBUMIN 1.6 g/dL (3.5-5.0); BUN 6 mg/dL (8-22); CALCIUM 7.7 mg/dL (8.8-10.2); CHLORIDE 92 mmol/L (98-107); COSMO 268; CREATININE 0.7 mg/dL (0.7-1.2); ESTIMATED GFR > 60; GLUCOSE 132 mg/dL (70-104); PHOSPHORUS 3.2 mg/dL (2.7-4.5); POTASSIUM 3.4 mmol/L (3.5-5.1); SODIUM 134 mmol/L (136-145); TCO2 36 mmol/L (25-35)
--- NOTE | 2019-08-08 11:46 | PROVIDER PROGRESS NOTE ---
Progress Note Pulmonary additional note: Full consult to follow. I have seen the case, reviewed the EMR, labs, latest images and other medical teams notes. Also reviewed the CYLINDER GRINDER notes and signed necessary form(s). I have noted changes in condition if any from yesterday and did orders if needed. Please see also signed progress sheet. Prognosis: Not certain for now. Palliative Care discussions in progress I reviewed Dr. Cristina Notes, Dr. Freeman notes and thoracentesis notes. CT chest seen. We ordered ABG and ProBnp. I will transfer to [facility] I asked staff veterinarian about condition changes and if they have any needs in regard to today conditions. I spent more than 30 minutes in this process.
[2019-08-08] MEDS: MORPHINE IV PRN ×2 (12:30→14:55)
--- NOTE | 2019-08-08 13:27 | PROGRESS NOTE ---
DATE: 08/08/2019 SUBJECTIVE: Patient reports breathing better. He complains of right hip pain most likely related to the fact that he is lying on that side of his body. No other complaints. OBJECTIVE: Vital Signs: Temperature 98.0 degrees, heart rate 87, respiratory rate 18, blood pressure 128/50, O2 saturation 96% on Ventimask. General Examination: This is a chronically ill-appearing, 64-year-old male, lying in bed, in no acute distress. Cardiovascular: S1, S2 heard. No murmurs, gallops, or rubs. Regular rate and rhythm. Respiratory: Exam still some minimal coarse breath sounds noted in both pulmonary bases and crackles as well but patient is not using any accessory muscles or having work of breathing. Abdomen: Soft. Colostomy bag in place. No signs of peritoneal irritation. Genitourinary wound covered by dressing. Extremities: No clubbing, cyanosis, or edema. Peripheral pulses present in both legs. Neurological: Patient is alert and oriented x3. Moves 4 extremities. LABORATORY DATA: White cell count 12.7, hemoglobin 8.2, hematocrit 25.4, platelets 495 with potassium 3.4. Normal creatinine. Albumin is 1.6, phosphorus 3.2. LDH is 316. ASSESSMENT AND PLAN: 1. Acute hypoxemic respiratory failure secondary to large pleural effusion. As we mentioned before, even after paracenteses procedure which removed 1.5 L of pleural fluid, he continues to require oxygen by non-rebreather mask. They tried to wean off oxygen on this patient but is still requiring a high amount of oxygen. What I am going to do is to consult pulmonary. We will continue with Zosyn. We will see what Pulmonary has to say. Help is appreciated. 2. Perianal necrotic infection. Suspect Cristina gangrene, status post diagnostic laparoscopy with laparoscopic loop diverting colostomy and debridement on Cristina gangrene. General surgery is following this patient. We will follow recommendations. 3. Diabetes mellitus type 2. We will continue with Accu-Chek before meals and also at bedtime. We will continue with Lantus and sliding scale insulin as well. 4. Hyponatremia, resolved. 5. Wound pain. We will continue with the current management. 6. Disposition. Patient is going to be evaluated by pulmonary. Will follow recommendations. cc: Nelson Mtz MD
--- NOTE | 2019-08-08 14:39 | GENERAL SURGERY PROGRESS NOTE ---
DATE: 08/08/2019 SUBJECTIVE: The patient is feeling better. He has less shortness of breath. OBJECTIVE: He is afebrile. Vital signs are stable.General: He is awake, alert, oriented x3. No acute distress. Gastrointestinal: Soft, nondistended, nontender. Stoma is pink and patent. Urine output noted to be 5000 mL. Chest: His chest exam reveals fine crackles in the right lung field. LABORATORY: White cell count 12.7, hemoglobin 8.2, hematocrit 25. ASSESSMENT AND PLAN: A 64-year-old male status post diverting loop colostomy for severe perineal wound from Cristina's gangrene. The wound is doing much better. His abdominal exam is benign. However, he has had shortness of breath, pulmonary edema, and pleural effusions. This seems to have improved status post thoracentesis and Lasix. Dr. Wadsworth has also been consulted. He has weaned down to nasal cannula now. Hopefully, we will have him ready to go to rehab early next week. cc: Leonardo Freeman MD
[2019-08-08] MEDS: LOVENOX SUBQ SCH (20:50)
[2019-08-09] MEDS: PROTONIX IV SCH ×3 (01:17→23:53)
[2019-08-09] MEDS: OXY IR PO SCH ×5 (01:17→23:51)
[2019-08-09] MEDS: ZOSYN 3.375 GM in NS 50 ML IV SCH ×4 (03:20→21:38)
[2019-08-09] MEDS: LASIX IV SCH ×2 (03:20→14:54)
[2019-08-09] MEDS: DUONEB (A & A) INH SCH ×5 (03:39→20:12)
[2019-08-09] MEDS: HUMALOG SUBQ SCH ×4 (06:19→21:39)
[2019-08-09 06:31] LABS: BASO# 0.05 X1000 (0.0-0.2); BASO% 0.4 % (0.0-0.8); EOS# 0.24 X1000 (0.0-0.7); EOS% 1.9 % (0.0-10.0); HEMATOCRIT 27.6 % (42.0-52.0); IMM GRAN# 0.03 X1000 (0.0-0.04); IMM GRAN% 0.2 % (0.0-0.5); LYMPH# 1.09 X1000 (1.2-3.4); LYMPH% 8.7 % (20.5-51.1); MCH 31.4 PG (27-31); MCHC 32.6 g/dL (33-37); MCV 96.2 FL (81-99); MONO# 1.02 X1000 (0.11-0.59); MONO% 8.1 % (1.7-9.3); MPV 9.7 FL (7.4-10.4); NEUT# 10.14 X1000 (1.4-6.5); NEUT% 80.7 % (42.2-75.2); PLT 543 X1000 (130-400); RBC 2.87 XMIL (4.7-6.1); RDW 12.5 % (11.5-14.5); WBC 12.57 X1000 (4.8-10.8)
[2019-08-09 07:26] LABS: AGAP 8; ALBUMIN 1.9 g/dL (3.5-5.0); BUN 7 mg/dL (8-22); CHLORIDE 92 mmol/L (98-107); COSMO 270; CREATININE 0.6 mg/dL (0.7-1.2); ESTIMATED GFR > 60; GLUCOSE 92 mg/dL (70-104); PHOSPHORUS 3.2 mg/dL (2.7-4.5); POTASSIUM 2.8 mmol/L (3.5-5.1); SODIUM 136 mmol/L (136-145); TCO2 36 mmol/L (25-35)
[2019-08-09] MEDS: PERIDEX MT SCH ×3 (07:48→21:38)
[2019-08-09] MEDS: TUMS PO SCH ×5 (07:49→16:06)
[2019-08-09] MEDS: LANTUS INSULIN SUBQ SCH ×3 (07:49→21:38)
--- NOTE | 2019-08-09 07:50 | GENERAL SURGERY PROGRESS NOTE ---
DATE: 08/09/2019 SUBJECTIVE: The patient has no new complaints. He continues to complain of left bottom and leg pain and numbness and weakness. He reports he has not been out of bed yet, but has been doing some exercises. OBJECTIVE: Vital Signs: He is afebrile. Vital signs are stable. General: He is awake, alert, oriented x3. No acute distress. GI: Soft, nontender, nondistended. Stoma is pink and patent. Respiratory: He has bilateral breath sounds better on the left side than the right. LABORATORY DATA: White blood cell count 12.5, hemoglobin 9, hematocrit 27. ASSESSMENT/PLAN: A 64-year-old male status post incision, drainage and debridement of Cristina gangrene followed by diverting loop colostomy, now with pleural effusions and respiratory failure, although this seems to be improved. He is quite weak and deconditioned. He does move his extremities. He is neurologically intact. We will reconsult physical therapy as it does not appear that they are seeing him regularly. cc: Leonardo Freeman MD
--- NOTE | 2019-08-09 08:36 | PROGRESS NOTE ---
DATE: 08/09/2019 SUBJECTIVE: Patient reports that he continues to breathe better. Now, he is requiring oxygen by nasal cannula at 2 L per minute. Mild pain in the hip because of his lying on that side most of the time but no other complaints noted. OBJECTIVE: Vital Signs: Temperature 98.8 degrees, heart rate 77, respiratory rate 16, blood pressure 128/57, O2 saturation 91% on 3 L nasal cannula. General Examination: This is a chronically ill-appearing, 64-year-old, male, lying in bed, in no acute distress. Cardiovascular Examination: S1 and S2 heard. No murmurs, gallops, or rubs. Regular rate and rhythm. Respiratory Examination: Minimal crackles noted in both pulmonary bases. Patient is not using any accessory muscles or having work of breathing. Abdomen: Soft,. A little bit distended but nontender to palpation. Bowel sounds present. No organomegaly. In the abdomen, there is a colostomy bag in place with no signs of peritoneal irritation. Genitourinary: Surgical wound covered by dressing. Neurological Examination: The patient is alert and oriented x3. Moves 4 extremities. Laboratory Data: White cell count 12.57, hemoglobin 9.0, hematocrit 27.6, platelets 553,000. Potassium 2.8. ProBNP 1577. Albumin is 1.9. ASSESSMENT/PLAN: 1. Acute hypoxemic respiratory failure secondary to large pleural effusion. His oxygen needs are trending down. Now requiring 2 L of oxygen by nasal cannula. We are going to recheck a chest x-ray, PA and lateral, and depending upon how it looks, we will decide to decrease the amount of Lasix that at this time is to 40 mg intravenous every 12 hours. We will continue with Zosyn while this patient is here in the hospital. I think at discharge, he will not need any antibiotics. Pulmonary is following this patient. We will follow recommendations. 2. Perianal necrotic infection, status post diagnostic laparoscopy with laparoscopic loop diverting colostomy and debridement of Cristina's gangrene. General surgery is following this patient. 3. Diabetes mellitus type 2. We will continue with Accu-Chek before meals and also at bedtime, and Lantus and sliding scale insulin as well. 4. Hyponatremia, resolved. 5. Wound pain. That condition is controlled. 6. Disposition. I think this patient clinically is making good progress. If tomorrow, he is cleared by general surgery, I think he can be discharged back to his rehab facility. cc: Nelson Mtz MD
--- NOTE | 2019-08-09 09:49 | CONSULTATION ---
DATE OF CONSULTATION: 08/09/2019 CHIEF COMPLAINT: Cyst of buttock. HISTORY OF PRESENT ILLNESS: This is a 64-year-old male with a history of insulin dependent diabetes mellitus type 2 and chronic pain. He is status post right thoracentesis. Post procedure x-ray revealed improved right pleural effusions. PAST MEDICAL HISTORY: Insulin dependent diabetes mellitus. PAST SURGICAL HISTORY: Rotator cuff repair. SOCIAL HISTORY: Drinks 3 shots of whiskey per day. He smokes a pack of cigarettes per day. He denies illicit drug use. ALLERGIES: No known drug allergies. HOME MEDICATIONS: Please see home reconciliation list. REVIEW OF SYSTEMS: A 10-point review of systems was obtained, and the pertinent is listed within the HPI, otherwise noncontributory. PHYSICAL EXAMINATION: Vital signs: Blood pressure 135/55, temperature 99.1, pulse 82, respirations 16, O2 saturation is 93% by mask. General: This is a 64-year-old gentleman resting quietly in bed, in no acute distress at the present time. HEENT: Head is atraumatic and normocephalic. Mucous membranes are dry. Pupils equal, round and reactive. Neck is supple with trachea midline. Cardiovascular: Regular rate and rhythm. S1 and S2 auscultated. Pulmonary: Breath sounds clear. No increased work of breathing. GI: Abdomen is soft, nontender and nondistended. Positive bowel sounds in all 4 quadrants. Skin: Warm and dry. Incision noted to left buttock with necrosis surrounding, tender. DIAGNOSTIC DATA: Recent chest x-ray revealed improved right pleural effusion. White blood cells 12.70, hemoglobin 8.2, hematocrit 25.4, platelets 495. Sodium 134, potassium 3.4, chloride 92. ASSESSMENT AND PLAN: 1. Pneumonia. Continue antibiotics and bronchodilators. We will continue to monitor with chest x- ray imaging transferring to PVC Unit for closer observation. 2. Perianal necrotic infection. He is on vancomycin. General Surgery consulted. 3. Right pleural effusion, status post right thoracentesis. Recent chest x-ray revealed improvement. 4. Wound pain. Continue current management. 5. Diabetes type 2 with ketoacidosis. Continue ketoacidosis protocol. Thank you for the courtesy of this consult. Dictated by DONAVAN Morin for Grant Wadsworth MD cc: DONAVAN Morin MD [facility]
--- NOTE | 2019-08-09 10:07 | Diag Imaging Result Doc PS360 ---
EXAM: CHEST-2 VIEWS 08/09/2019 HISTORY: pleural effusions TECHNIQUE: Two views the chest COMMENT: There is a right pleural effusion. This was also present on 08/06/2019. The interstitial and alveolar opacity in the left lung seen on the previous study has largely resolved however. There is a PICC line on the right with its tip in the superior vena cava just above the right atrium. IMPRESSION: Right pleural effusion. Electronically signed by Felipe Ferguson 08/09/2019 10:05 AM
[2019-08-09] MEDS: POTASSIUM CHLORIDE 60 MEQ in NS 500 ML IV SCH ×2 (10:14→15:32)
--- NOTE | 2019-08-09 11:16 | PROVIDER PROGRESS NOTE ---
Progress Note Pulmonary additional note: I have seen the case, reviewed the EMR, labs, latest images and other medical teams notes. Also reviewed the VEGETABLE WASHING MACHINE OPERATOR notes and signed necessary form(s). I have noted changes in condition if any from yesterday and did orders. Please see also signed progress sheet. Prognosis: Guarded for now. Since yesterday, he was moved to [facility]. tolerating [place] now. [place] better after thoracentesis. ABG ordered and not done. will find out why. I reviewed notes from Dr. Cristina respiratory failure compensated. Pleural effusion post thoracentesis. Transudative. COPD Sepsis I asked director of medical staff services about condition changes and if they have any needs in regard to today conditions. I spent 32 minutes in this process.
[2019-08-09] MEDS: MORPHINE IV PRN (19:34)
[2019-08-09] MEDS: LOVENOX SUBQ SCH (21:38)
[2019-08-10] MEDS: DUONEB (A & A) INH SCH ×5 (00:25→16:15)
[2019-08-10] MEDS: OXY IR PO SCH ×3 (02:00→16:57)
[2019-08-10] MEDS: ZOSYN 3.375 GM in NS 50 ML IV SCH (04:25)
[2019-08-10] MEDS: LASIX IV SCH (04:26)
[2019-08-10 06:49] LABS: BASO# 0.04 X1000 (0.0-0.2); BASO% 0.4 % (0.0-0.8); EOS# 0.27 X1000 (0.0-0.7); EOS% 2.4 % (0.0-10.0); HEMATOCRIT 27.5 % (42.0-52.0); IMM GRAN# 0.03 X1000 (0.0-0.04); IMM GRAN% 0.3 % (0.0-0.5); LYMPH# 1.24 X1000 (1.2-3.4); LYMPH% 10.9 % (20.5-51.1); MCH 31.4 PG (27-31); MCHC 32.7 g/dL (33-37); MCV 95.8 FL (81-99); MONO% 8.8 % (1.7-9.3); MPV 9.6 FL (7.4-10.4); NEUT# 8.77 X1000 (1.4-6.5); NEUT% 77.2 % (42.2-75.2); PLT 566 X1000 (130-400); RBC 2.87 XMIL (4.7-6.1); RDW 12.1 % (11.5-14.5); WBC 11.35 X1000 (4.8-10.8)
[2019-08-10 07:30] LABS: AGAP 9; ALBUMIN 1.9 g/dL (3.5-5.0); BUN 6 mg/dL (8-22); CALCIUM 7.6 mg/dL (8.8-10.2); CHLORIDE 94 mmol/L (98-107); COSMO 271; CREATININE 0.6 mg/dL (0.7-1.2); ESTIMATED GFR > 60; GLUCOSE 127 mg/dL (70-104); PHOSPHORUS 2.5 mg/dL (2.7-4.5); POTASSIUM 3.4 mmol/L (3.5-5.1); SODIUM 136 mmol/L (136-145); TCO2 33 mmol/L (25-35)
[2019-08-10] MEDS: HUMALOG SUBQ SCH ×3 (07:38→16:56)
[2019-08-10] MEDS: LANTUS INSULIN SUBQ SCH (09:19)
[2019-08-10] MEDS: TUMS PO SCH ×3 (09:19→17:00)
[2019-08-10] MEDS: PERIDEX MT SCH (09:20)
--- NOTE | 2019-08-10 09:38 | PROGRESS NOTE ---
DATE: 08/10/2019 SUBJECTIVE: The patient reports feeling much better, breathing better. He is requiring 2 L of oxygen by nasal cannula. No other complaints noted. OBJECTIVE: Vital Signs: Temperature 99.2 degrees, heart rate 77, respiratory rate 18, blood pressure 119/53, O2 saturation 100% on 3 L nasal cannula. General: This is a 64-year-old chronically ill-appearing male lying in bed in no acute distress. Cardiovascular: S1, S2 heard. No murmurs, gallops, or rubs. Regular rate and rhythm. Respiratory: Minimal crackles in both pulmonary bases. Patient is not using any accessory muscles or having work of breathing. Abdomen: Soft. A little bit distended. Nontender to palpation. Bowel sounds present. No organomegaly. In the abdomen there is a colostomy bag in place with no signs of peritoneal irritation. Genitourinary: Surgical wound covered with dressing. Neurological: Patient alert and oriented x3. Moves 4 extremities. LABORATORY DATA: Reviewed. White cell count 11.35, hemoglobin 9.0. Potassium 3.4. ASSESSMENT AND PLAN: 1. Acute hypoxemic respiratory failure secondary to large pleural effusion. Oxygen needs definitely much better today. Since yesterday he was requiring 2 to 3 L of oxygen by nasal cannula. The x-ray that we have done yesterday showed right pleural effusion that was present on a prior x-ray. There is also alveolar opacity in the left lung seen on previous study that has largely resolved. I think at this point, we will stop Lasix IV and will continue to monitor this patient closely. He continues to be on Zosyn while he is here in the hospital. Will continue to monitor. 2. Perianal necrotic infection status post diagnostic laparoscopy with laparoscopy loop diverting colostomy and debridement of Cristina's gangrene. General Surgery following this patient. 3. Diabetes mellitus type 2. Will continue with Accu-Chek before meals and also at bedtime, Lantus and sliding scale insulin as well. 4. Hyponatremia, resolved. 5. Wound pain. Will continue with the same management. 6. Disposition. At this point, patient is clinically stable. We are awaiting surgical clearance in order to send this patient back [facility]. cc: Nelson Mtz MD
--- NOTE | 2019-08-10 10:44 | PROVIDER PROGRESS NOTE ---
Progress Note Pulmonary additional note: I have seen the case, reviewed the EMR, labs, latest images and other medical teams notes. Also reviewed the [employer] notes and signed necessary form(s). I have noted changes in condition if any from yesterday and did orders. Please see also signed progress sheet. Laboratory Results 08/06/19 08/09/19 08/09/19 13:45 15:29 21:34 WBC RBC Hgb Hct MCV MCH MCHC RDW Std Deviation Plt Count MPV Immature Gran % (Auto) Neut % (Auto) Lymph % (Auto) Eagle % (Auto) Eos % (Auto) Baso % (Auto) Immature Gran # (Auto) Neut # (Auto) Lymph # (Auto) Eagle # (Auto) Eos # (Auto) Baso # (Auto) Sodium Potassium Chloride Carbon Dioxide Anion Gap BUN Creatinine Estimated GFR/1.73 m2 BUN/Creatinine Ratio Glucose POC Glucose 273 H 281 H Calculated Osmolality Calcium Phosphorus Magnesium Albumin Fungal Smear SEE COMMENTS 08/10/19 08/10/19 08/10/19 05:33 06:30 06:30 WBC 11.35 H RBC 2.87 L Hgb 9.0 L Hct 27.5 L MCV 95.8 MCH 31.4 H MCHC 32.7 L RDW Std Deviation 12.1 Plt Count 566 H MPV 9.6 Immature Gran % (Auto) 0.3 Neut % (Auto) 77.2 H Lymph % (Auto) 10.9 L Eagle % (Auto) 8.8 Eos % (Auto) 2.4 Baso % (Auto) 0.4 Immature Gran # (Auto) 0.03 Neut # (Auto) 8.77 H Lymph # (Auto) 1.24 Eagle # (Auto) 1.00 H Eos # (Auto) 0.27 Baso # (Auto) 0.04 Sodium Potassium Cancelled Chloride Carbon Dioxide Anion Gap BUN Creatinine Estimated GFR/1.73 m2 BUN/Creatinine Ratio Glucose POC Glucose 118 H D Calculated Osmolality Calcium Phosphorus Magnesium 1.7 Albumin Fungal Smear 08/10/19 06:30 WBC RBC Hgb Hct MCV MCH MCHC RDW Std Deviation Plt Count MPV Immature Gran % (Auto) Neut % (Auto) Lymph % (Auto) Eagle % (Auto) Eos % (Auto) Baso % (Auto) Immature Gran # (Auto) Neut # (Auto) Lymph # (Auto) Eagle # (Auto) Eos # (Auto) Baso # (Auto) Sodium 136 Potassium 3.4 L D Chloride 94 L Carbon Dioxide 33 Anion Gap 9 BUN 6 L Creatinine 0.6 L Estimated GFR/1.73 m2 > 60 BUN/Creatinine Ratio 10 Glucose 127 H POC Glucose Calculated Osmolality 271 Calcium 7.6 L Phosphorus 2.5 L Magnesium Albumin 1.9 L Fungal Smear Vital Signs 08/09/19 11:09 08/09/19 11:36 08/09/19 15:07 Temperature 98.5 F 98.8 F Pulse Rate 81 80 66 Respiratory Rate 17 17 16 Blood Pressure 146/70 126/63 O2 Sat by Pulse Oximetry 98 98 97 08/09/19 19:51 08/09/19 20:12 08/10/19 00:00 Temperature 99.2 F 99.3 F Pulse Rate 81 79 Respiratory Rate 18 18 Blood Pressure 95/59 117/59 O2 Sat by Pulse Oximetry 100 99 98 08/10/19 03:41 08/10/19 08:00 08/10/19 08:56 Temperature 99.2 F Pulse Rate 77 75 79 Respiratory Rate 18 16 18 Blood Pressure 118/53 119/54 O2 Sat by Pulse Oximetry 95 100 97 Intake & Output 08/09/19 08/10/19 08/10/19 19:59 07:59 19:59 Intake Total 200 / 540 340 / 540 Output Total 2425 / 3075 650 / 3075 Balance -2225 / -2535 -310 / -2535 Intake: Intake, IV Amount 100 / 100 Intake, Oral Amount 200 / 440 240 / 440 Output: Output, Urine Void Amount 350 / 350 Output, Urine Santiago Amount 2225 / 2325 100 / 2325 Output, Fecal Device 200 / 400 200 / 400 Other: Percent of Meal Consumed 25% All Active Problems Cellulitis and abscess of buttock (Acute) Skin necrosis (Acute) Prognosis: Guarded for now. Since yesterday, he is tolerating NC. I reviewed notes from Dr. Cristina respiratory failure compensated. Pleural effusion post thoracentesis. Transudative. COPD Sepsis I asked staff scientist about condition changes and if they have any needs in regard to today conditions. I spent 33 minutes in this process.
[2019-08-10] MEDS ORDERED: KLOR-CON PO ONE (11:10)
[2019-08-10] MEDS: PROTONIX IV SCH (11:27)
--- NOTE | 2019-08-10 12:59 | GENERAL SURGERY PROGRESS NOTE ---
DATE: 08/10/2019 SUBJECTIVE: The patient feels like he is breathing better. He denies abdominal pain. He is eating. OBJECTIVE: He is afebrile. Vital signs are stable.General: He is awake, alert, oriented x3. No acute distress. Gastrointestinal: Abdomen soft, nontender, nondistended. Stoma is pink and patent. Skin: His perineal wound was examined. There is general granulation tissue occurring throughout the wound. There is still some purulent drainage but no necrotic tissue. ASSESSMENT AND PLAN: 64-year-old male status post diverting loop colostomy and debridement of perineal Cristina gangrene. He has postoperative respiratory failure secondary to pulmonary edema and pleural effusion. He is being weaned off his oxygen. His breathing is much better. The pleural effusion is much smaller. The wound continues to need Vashe wet-to-dry dressings. We will switch his antibiotics from Zosyn to Levaquin by mouth and it appears to me he would be ready for rehab any day now. cc: Leonardo Freeman MD
[2019-08-10] MEDS: MORPHINE IV PRN (13:49)
[2019-08-10 16:06] VITALS: BP 125/72
--- NOTE | 2019-08-10 16:08 | PROVIDER PROGRESS NOTE ---
Progress Note Dr. Wadsworth Progress Note/Pulmonary and or critical care We appreciated progress of care, Complications, change in diagnosis, and instructions to patient under direct supervision of Dr. Wadsworth. Subjective: We note the level of consciousness, bed (chair) position, family presence (if any), level of lethargy, feeling of symptoms, and changes from baseline condition/symptom. The patient feels: better Vital Signs: We reviewed EMR current values for Pulse rate, Blood pressure, Pulse rate, respiratory rate and Pulse oximetry. Also noted other values and trends if present (e.g. I/O, CVP). Vital Signs 08/09/19 19:51 08/09/19 20:12 08/10/19 00:00 Temperature 99.2 F 99.3 F Pulse Rate 81 79 Respiratory Rate 18 18 Blood Pressure 95/59 117/59 O2 Sat by Pulse Oximetry 100 99 98 08/10/19 03:41 08/10/19 08:00 08/10/19 08:56 Temperature 99.2 F Pulse Rate 77 75 79 Respiratory Rate 18 16 18 Blood Pressure 118/53 119/54 O2 Sat by Pulse Oximetry 95 100 97 08/10/19 11:50 08/10/19 12:16 08/10/19 16:00 Temperature 99.5 F 99.2 F Pulse Rate 86 84 79 Respiratory Rate 17 16 17 Blood Pressure 132/65 125/72 O2 Sat by Pulse Oximetry 100 98 100 Intake & Output 08/09/19 08/10/19 08/10/19 19:59 07:59 19:59 Intake Total 200 / 1020 340 / 1020 840 / 840 Output Total 2425 / 3075 650 / 3075 1999 Balance -2225 / -2055 -310 / -2055 -1160 / -1160 Intake: Intake, IV Amount 100 / 100 Intake, Oral Amount 200 / 920 240 / 920 840 / 840 Output: Output, Urine Void Amount 350 / 350 Output, Urine Santiago Amount 2225 / 2325 100 / 2325 1999 Output, Fecal Device 200 / 400 200 / 400 Other: Percent of Meal Consumed 25% Bites Only Objective: We examined the following systems General and HEENT: Trachea Midline. Chest: Crackles. CVS: S1 S2. Abdomen: Tender. Soft. Bowel Sounds present. Extremities: Trace pedal edema Neuro: Alert. Labs and Radiology: Reviewed available labs and radiology values available at time of EMR review. Laboratory Results 08/06/19 08/09/19 08/10/19 13:45 21:34 05:33 WBC RBC Hgb Hct MCV MCH MCHC RDW Std Deviation Plt Count MPV Immature Gran % (Auto) Neut % (Auto) Lymph % (Auto) Sargent % (Auto) Eos % (Auto) Baso % (Auto) Immature Gran # (Auto) Neut # (Auto) Lymph # (Auto) [place]ent # (Auto) Eos # (Auto) Baso # (Auto) Sodium Potassium Chloride Carbon Dioxide Anion Gap BUN Creatinine Estimated GFR/1.73 m2 BUN/Creatinine Ratio Glucose POC Glucose 281 H 118 H D Calculated Osmolality Calcium Phosphorus Magnesium Albumin Fungal Smear SEE COMMENTS 08/10/19 08/10/19 08/10/19 06:30 06:30 06:30 WBC 11.35 H RBC 2.87 L Hgb 9.0 L Hct 27.5 L MCV 95.8 MCH 31.4 H MCHC 32.7 L RDW Std Deviation 12.1 Plt Count 566 H MPV 9.6 Immature Gran % (Auto) 0.3 Neut % (Auto) 77.2 H Lymph % (Auto) 10.9 L [place] % (Auto) 8.8 Eos % (Auto) 2.4 Baso % (Auto) 0.4 Immature Gran # (Auto) 0.03 Neut # (Auto) 8.77 H Lymph # (Auto) 1.24 [place]ent # (Auto) 1.00 H Eos # (Auto) 0.27 Baso # (Auto) 0.04 Sodium 136 Potassium Cancelled 3.4 L D Chloride 94 L Carbon Dioxide 33 Anion Gap 9 BUN 6 L Creatinine 0.6 L Estimated GFR/1.73 m2 > 60 BUN/Creatinine Ratio 10 Glucose 127 H POC Glucose Calculated Osmolality 271 Calcium 7.6 L Phosphorus 2.5 L Magnesium 1.7 Albumin 1.9 L Fungal Smear 08/10/19 10:51 WBC RBC Hgb Hct MCV MCH MCHC RDW Std Deviation Plt Count MPV Immature Gran % (Auto) Neut % (Auto) Lymph % (Auto) S[place]ent % (Auto) Eos % (Auto) Baso % (Auto) Immature Gran # (Auto) Neut # (Auto) Lymph # (Auto) [place]ent # (Auto) Eos # (Auto) Baso # (Auto) Sodium Potassium Chloride Carbon Dioxide Anion Gap BUN Creatinine Estimated GFR/1.73 m2 BUN/Creatinine Ratio Glucose POC Glucose 256 H D Calculated Osmolality Calcium Phosphorus Magnesium Albumin Fungal Smear Dr. Wadsworth evaluated and additional note below. Evaluation time in minutes: More than 31 minutes Assessment: Respiratory failure Pleural effusion s/p Thoracentesis, right, transudative COPD Sepsis Perianal necrotic infection Plan Continue current treatment and supportive care per admitting and other teams on the case. Antibiotics Bronchodilators Appropriate DVT and GI prophylaxis Physical Therapy DC planning per admitting MD Input was appreciated from Admitting MD and other teams on the case. See additional notes from Dr. Wadsworth.
--- NOTE | 2019-08-10 16:32 | DISCHARGE SUMMARY ---
ADMISSION DATE: 07/27/2019 DISCHARGE DATE: 08/10/2019 DISCHARGE DIAGNOSES: 1. 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 2. Diabetes mellitus type 2. 3. Acute respiratory failure improved. 4. Left pleural effusion. 5. Hyponatremia, resolved number. CONSULTATIONS: 1. Dr. Dimitri Lynne from General Surgery 2. Dr. Leonardo Freeman from General Surgery. 3. Dr. Wadsworth from Pulmonary. PROCEDURES: 1. Chest x-ray done on admission and showed no pneumonia. 2. Excision and debridement of the skin and soft tissue of the perianal area to the left of the midline measuring 12 x 6 x [address] Lynne on 07/28/2019. 3. Chest CT done August 05 showed bilateral pleural effusion with bilateral infiltrates and fibrosis as well. Right lower lobe atelectasis. 4. Paracenteses ultrasound performed by Dr. Ferguson removed 1.5 L of pleuritic fluid. 5. Removed 1.5 L of pleural fluid. 6. Chest x-ray done 1 day before discharge showed right pleural effusion. HOSPITAL COURSE: This is a 64-year-old male with history of diabetes mellitus type 2, chronic pain who presented to the emergency department complaining of having open wound on his buttocks that was back at the Med/surg clinic a few days before admission. He was supposed to return to the clinic but he was not able to walk because of the pain in that area so he was brought to the emergency department and he was discharged with some antibiotics by mouth but he failed outpatient treatment so he was admitted to the hospital. Evaluated by General Surgery. They performed a 1st excision debridement on July 28. We continue with antibiotics. Apparently, the patient was not doing good. So, we needed to do another excisional debridement. That was done on him on August 03. The patient was doing fine from surgical standpoint. He developed acute respiratory failure. We found out that he has a large left pleural effusion that was draining with thoracentesis and looks to be a transudate. We consulted Pulmonary. He continues to progress well. We continue with IV antibiotics at the time of discharge. He has been cleared by surgery today. We will provide antibiotics for 7 more days with Levaquin. He is being discharged in stable condition. DISCHARGE PHYSICAL EXAMINATION: Temperature. 99.5, heart rate 86 respiratory 17 blood pressure 132/65 O2 saturation 100% 3 L nasal cannula. General: This is a chronically ill-looking, 64-year- old male, lying in bed, in no acute distress. Cardiovascular exam S1, S2 heard. No murmurs, gallops, or rubs. Regular rate and rhythm. Respiratory exam clear bilaterally to auscultation. No work of breathing or using accessory muscles. Abdomen: Soft, nontender to palpation. Bowel sounds present. No organomegaly. Extremities: No clubbing, cyanosis, or edema. Peripheral pulses present in both legs. Neurological: The patient is alert and oriented x3. Moves 4 extremities. Genitourinary: Patient wound is covered by dressing. DISCHARGE DISPOSITION: To rehab facility. TIME SPENT IN DISCHARGE: 40 minutes. FOLLOWUP AFTER DISCHARGE FROM REHAB: He may need to be seen by surgery as needed if he is not improved. MEDICATIONS: 1. Lantus 10 units subcutaneous twice daily. 2. Levofloxacin 1 tablet p.o. daily for 7 days. 500 mg. 3. Oxycodone 5 mg 1 tablet p.o. every 8 hours as needed. 4. DuoNeb every 4 hours as needed for shortness of breath. 5. Cyclobenzaprine 1 tablet p.o. every 8 hours as needed. cc: Nelson Mtz MD MTDD
[2019-08-11] MEDS ORDERED: LEVAQUIN PO SCH (09:00)
== END 2019-08-10 18:15 | DRG 264 ==
LOC: ED 11:47 → SUATTDRO 16:48 → 4N 16:48 → 2N 20:24 → 4N 07-29 15:03 → 2N 08-08 19:53
PROVIDERS: ATTEND Internal Medicine

== ENCOUNTER 2019-10-30 13:38 | Observation (INO) ==
[~2019-10-30 13:38] MED LIST: NS 500 ML IV ONE
[2019-10-30 14:28] LABS: HEMATOCRIT 27.6 % (42.0-52.0); HEMOGLOBIN 8.6 g/dL (14.0-18.0)
[2019-10-30 14:53] LABS: AGAP 8; BUN 11 mg/dL (8-22); CHLORIDE 98 mmol/L (98-107); COSMO 279; CREATININE 0.6 mg/dL (0.7-1.2); ESTIMATED GFR > 60; GLUCOSE 294 mg/dL (70-104); POTASSIUM 4.1 mmol/L (3.5-5.1); SODIUM 134 mmol/L (136-145); TCO2 28 mmol/L (25-35)
[2019-10-30] MEDS: NS 1,000 ML IV SCH (15:56)
--- NOTE | 2019-10-30 16:31 | HISTORY AND PHYSICAL ---
ADMITTING DIAGNOSIS: Bleeding wound. HISTORY OF PRESENT ILLNESS: A 64-year-old gentleman well known to my partner, Dr. 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 He apparently came in back in July and August and had debridement. He had a diverting colostomy at that time. He had apparently been doing wound care and was at [facility]ound Care today and the nurses noted some bleeding, so he was admitted over here for evaluation. PAST MEDICAL HISTORY: Insulin-dependent diabetes mellitus. PAST SURGICAL HISTORY: 1. Rotator cuff. 2. Debridement of Cristina's. 3. Loop colostomy. SOCIAL HISTORY: Current smoker. ALLERGIES: None. HOME MEDICATIONS: Reviewed. REVIEW OF SYSTEMS: A full 14 systems reviewed and negative except as those specified in HPI. FAMILY HISTORY: Reviewed with the patient and noncontributory. PHYSICAL EXAMINATION: VITAL SIGNS: The patient is currently afebrile. His vital signs are stable. GENERAL: No acute distress. HEENT: Normocephalic, atraumatic. Pupils equal, round, and reactive to light. Mucous membranes moist. Oropharynx benign. NECK: Supple trachea midline. CARDIOVASCULAR: Regular rate and rhythm. LUNGS: Grossly clear. ABDOMEN: Soft. Ostomy functioning. PERINEUM: Perineal region with wound noted. No active bleeding. EXTREMITIES: Moves all extremities. NEUROLOGIC: Grossly intact. SKIN: No signs of jaundice. VASCULAR: All extremities perfused. LABORATORY DATA: Most recent hematocrit is 27.6 which is essentially at his baseline. ASSESSMENT AND PLAN: A 64-year-old gentleman with bleeding wound. Regarding bleeding wound, at this time we will repack the wound, get official wound care orders from the [facility], we will monitor him overnight, and repeat his labs in the morning with a plan on discharging him if he does not have any active bleeding. cc: MD Leonardo Valencia MD
[2019-10-30] MEDS: HUMULIN R SUBQ SCH ×2 (18:57→21:23)
[2019-10-30] MEDS: FLEXERIL PO SCH (21:24)
[2019-10-30] MEDS: OXY IR PO PRN (21:24)
[2019-10-31] MEDS: OXY IR PO PRN ×3 (05:57→20:25)
[2019-10-31] MEDS: FLEXERIL PO SCH ×3 (05:57→20:24)
--- NOTE | 2019-10-31 06:14 | GENERAL SURGERY PROGRESS NOTE ---
DATE: 10/31/2019 SUBJECTIVE: Patient seems to be doing okay. Nursing staff reports no major bleeding noted. His wound has been intact since we changed it last night. OBJECTIVE: Vital Signs: Patient is currently afebrile. Vital signs are stable. General: No acute distress. Cardiovascular: Regular rate and rhythm. Lungs: Grossly clear. Abdomen: Soft. Ostomy functioning. Perineal region packing removed. No active bleeding. ASSESSMENT AND PLAN: A 64-year-old gentleman with a bleeding wound. Bleeding wound at this time seems to have stopped. We will follow up with his hematocrit. If it is relatively stable, we will consider discharging him today. cc: MD Leonardo Valencia MD
[2019-10-31] MEDS: NS 1,000 ML IV SCH (06:39)
[2019-10-31] MEDS: HUMULIN R SUBQ SCH ×4 (06:40→23:53)
[2019-10-31 06:55] LABS: BASO# 0.04 X1000 (0.0-0.2); BASO% 0.5 % (0.0-0.8); EOS# 0.15 X1000 (0.0-0.7); EOS% 1.8 % (0.0-10.0); HEMATOCRIT 25.6 % (42.0-52.0); HEMOGLOBIN 7.9 g/dL (14.0-18.0); LYMPH# 1.81 X1000 (1.2-3.4); LYMPH% 21.5 % (20.5-51.1); MCH 28.2 PG (27-31); MCHC 30.9 g/dL (33-37); MCV 91.4 FL (81-99); MONO# 1.28 X1000 (0.11-0.59); MONO% 15.2 % (1.7-9.3); MPV 8.8 FL (7.4-10.4); NEUT# 5.12 X1000 (1.4-6.5); PLT 674 X1000 (130-400); RDW 13.4 % (11.5-14.5)
[2019-11-01] MEDS: OXY IR PO PRN ×2 (05:38→13:07)
[2019-11-01] MEDS: FLEXERIL PO SCH ×2 (05:38→13:07)
--- NOTE | 2019-11-01 06:03 | GENERAL SURGERY PROGRESS NOTE ---
DATE: 11/01/2019 SUBJECTIVE: Patient seems to be doing okay. He had a little bit of bleeding yesterday from his wound. His hematocrit did decrease down to 25.6, which is down from patient's baseline. Through the course of the night he had no more bleeding after they changed the dressing. OBJECTIVE: Vital Signs: Patient is currently afebrile. His vital signs are stable. General: No acute distress. Cardiovascular: Regular rate and rhythm. Lungs: Grossly clear. Abdomen: Soft, nontender. Ostomy functioning. Perineal wound looks okay. No active bleeding on removal of the packing. ASSESSMENT AND PLAN: A 64-year-old gentleman with a bleeding wound. Bleeding wound. At this time, he did have a little bit of bleeding yesterday, but it seems to have stopped right now. His hematocrit is down slightly. We will see if he bleeds through the course today and if he has not had any more bleeding around lunchtime, we will consider discharge today. cc: MD Leonardo Valencia MD
[2019-11-01] MEDS: NS 1,000 ML IV SCH (06:24)
[2019-11-01] MEDS: HUMULIN R SUBQ SCH ×3 (07:04→16:19)
[2019-11-01 15:58] VITALS: BP 125/72
--- NOTE | 2019-11-04 09:48 | DISCHARGE SUMMARY ---
ADMISSION DATE: 10/30/2019 DISCHARGE DATE: 11/01/2019 ADMITTING DIAGNOSIS: Bleeding chronic wound. DISCHARGE DIAGNOSIS: Bleeding chronic wound. ADMITTING PHYSICIAN: Dr. Jorge Azevedo. PROCEDURES: None. BRIEF HISTORY AND COURSE OF STAY: A 64-year-old gentleman who is a patient of my partner, Dr. Freeman, who has seen him [facility] for chronic wound. There was some concern of the bleeding at the [facility] and he was admitted. We watched him through the course of 2 days. He did have a slight decrease in his hematocrit from his baseline, but he did not have any significant bleeding noted during his hospital stay. He was doing well. He has had the wound change several times. His wound seems to be stable and it was felt that on the day of discharge, it would be safe to discharge him. DISPOSITION: Home. DISCHARGE CONDITION: Patient given full detailed description of his wound care instructions. FOLLOW-UP: Patient told to follow up Dr. Freeman in the [facility]. cc: MD Leonardo Valencia MD
== END 2019-11-01 17:22 | disposition home health service (06) ==
LOC: DIRADM → 4N 13:38
PROVIDERS: ADMIT Surgery; ATTEND Surgery